=== PATIENT | female | born 1950 | race Caucasian/White ===

== ENCOUNTER 2021-09-30 12:52 | Emergency (ER) | payer MEDICARE, SELFPAY ==
--- NOTE | ~2021-09-30 | XR_ITS ---
[id number] DATE: 09/30/2021 13:30 INDICATION: Right anterior rib pain since missing 5 steps on 09/23/2021 TECHNIQUE: PA chest. 3 views of the right ribs. COMPARISON: None FINDINGS: Normal heart size. There is aortic arch calcification. No hilar or mediastinal enlargement. The lungs are clear of infiltrate or consolidation. There is mild dextro scoliosis of the thoracic spine. There are minimally displaced linear oblique fractures of the anterior right sixth and seventh ribs. No pulmonary contusion, pleural effusion or pneumothorax is evident. IMPRESSION: Minimally displaced anterior right sixth and seventh recent rib fractures Reviewed, dictated and finalized at [facility]. Reviewed, dictated and finalized at [facility]. LEADER IMPRESSION: Minimally displaced anterior right sixth and seventh recent rib fra ctures
[2021-09-30 13:08] VITALS: BP 137/63; PULSE 66; RESP 20; TEMP 37.1; O2SAT 100
--- NOTE | 2021-09-30 13:32 | ED.FALL ---
HPI - Fall General Chief Complaint: Fall Stated Complaint: Fall Injurty/Right Side Time Seen by Provider: 09/30/21 13:32 Source: patient History of Present Illness HPI Narrative: patient fell down some stairs two weeks ago. Patient presents with continued right rib pain. no shortness of breath and no chest pain. resp even and non labored. Related Data Home Medications Medication Instructions Recorded Confirmed amlodipine 09/30/21 atorvastatin 09/30/21 citalopram 09/30/21 losartan 09/30/21 metformin 09/30/21 metoprolol tartrate 09/30/21 omeprazole 09/30/21 Allergies Allergy/AdvReac Type Severity Reaction Status Date / Time No Known Allergies Allergy Verified 09/30/21 13:55 Review of Systems Review of Systems: CONSTITUTIONAL: Denies fever, chills, or sweats. EYES: Denies visual changes, redness, or discharge. ENT: Denies rhinorrhea, congestion, sore throat, or otalgia. CARDIOVASCULAR: Denies chest pain, palpitations, or edema. RESPIRATORY: Denies cough or dyspnea. GASTROINTESTINAL: Denies abdominal pain, nausea, vomiting, or diarrhea. GENITOURINARY: Denies dysuria or hematuria. SKIN: Denies rash or itching. MUSCULOSKELETAL: Denies back pain, joint pain, or myalgia. NEUROLOGIC: Denies headache, numbness, or weakness. PSYCHIATRIC: Denies anxiety or depression. PMFSH Comments At time of signature, agree with nursing past medical, surgical, social and family history. There is no relevant family history pertinent to the presenting complaint Exam Narrative: GENERAL: Well-appearing, well-nourished, and in no acute distress. HEAD: Normocephalic, atraumatic. EYES: PERRLA and EOMI. ENT: Nares clear, no rhinorrhea or epistaxis. Mucous membranes moist. NECK: Supple. CHEST: Clear to auscultation. No respiratory distress. HEART: Regular rate and rhythm. No murmur heard. Normal peripheral pulses. ABDOMEN: Soft, nontender, nondistended, normal active bowel sounds. EXTREMITIES: Normal range of motion. No edema. SKIN: Warm, dry, no rash. NEURO: No focal deficits. Alert and oriented x3. [place] Coma Scale Eye Opening: Spontaneous 4 Alis Coma Scale Motor: Obeys Commands 6 [place] Coma Scale Verbal: Oriented 5 [place] Coma Scale Total 15 Course Course Level of Care: [facility] Visit Vital Signs Vital signs: Vital Signs Temperature 37.1 C 09/30/21 13:08 Pulse Rate 66 09/30/21 13:08 Respiratory Rate 20 09/30/21 13:08 Blood Pressure 137/63 09/30/21 13:08 Pulse Oximetry 100 09/30/21 13:08 Temperature 37.1 C 09/30/21 13:08 Pulse Rate 66 09/30/21 13:08 Respiratory Rate 20 09/30/21 13:08 Blood Pressure 137/63 09/30/21 13:08 Pulse Oximetry 100 09/30/21 13:08 Addressed elevated BP today. Today's blood pressure higher than recommended range. Discussed importance of follow -up with PCP and possible [place] [facility] effects/cardiovascular events related to HTN. Currently patient denies headache, dizziness, vision changes, CP or shortness of breath. Critical dx considered and discussed with pt. Educated patient on red flag s/s and to go to ED if s/s occur. Discussed with pt when to return to [facility] or primary care provider. Pt gave verbal undertstanding, all questions were answered, and pt was agreeable to plan DISCUSSED WITH PATIENT, X-RAY FINDINGS AND THAT X-RAYS WERE NEGATIVE FOR FRACTURE OR DISLOCATIONS. X-RAYS CANNOT RULE OUT TENDON, LIGAMENT, OR SOFT TISSUE STRUCTURE INJURIES AND IF SYMPTOMS PERSIST OR WORSEN, FURTHER EVALUATION MAY BE WARRANTED FOR POTENTIAL IMAGING. ADVISED REST, ICE, COMPRESSION, AND ELEVATION. IF PRESCRIBED ANY MEDICATIONS, TAKE DIRECTED. IF PRESCRIBED MUSCLE RELAXERS, DO NOT DRINK ALCOHOL, DRIVE, OR OPERATE ANY HEAVY MACHINERY WHILE TAKING. INSTRUCTED ON WHEN TO F/U WITH PCP AND CRITICAL RED FLAGS S/S DISCUSSED TO WHEN TO RETURN TO THE [facility] OR GO TO THE EMERGENCY DEPARTMENT. PATIENT/FAMILY UNDERSTAND IMPORTANCE OF CLOSE OBSERVATION AND RETU
== END 2021-09-30 14:10 | disposition home or self-care (01) ==
PROVIDERS: Emergency Provider Nurse Practitioner Family; PCP Family Medicine
DX: S22.31XA Fracture of one rib, right side, initial encounter for closed fracture (principal); W10.9XXA Fall (on) (from) unspecified stairs and steps, initial encounter; E78.00 Pure hypercholesterolemia, unspecified; I10 Essential (primary) hypertension; E11.9 Type 2 diabetes mellitus without complications
CPT/HCPCS: 71101; 99213; G0463

== ENCOUNTER 2025-06-21 12:47 | Emergency (ER) | payer MEDICARE, SELFPAY ==
--- OUTSIDE RECORDS SUMMARY | 2025-04-25 05:15 | XMS_ITS | Continuity of Care Document ---
Author Organization [facility] Address [address] Seth [address] [place] [id number] Phone Care Team Providers Care Field Technical Support Consultant Name Role Phone Destiny RAINEMargaret Unavailable Unavailable Allergies, Adverse Reactions, Alerts Substance Reaction Status Criticality No Known Allergies Active No Inform ation Medications Medication Instructions Dosage Effective Dates (start - stop) Status Comments Mounjaro 5 mg/0.5 mL subcutaneous pen injector inject (5MG) by subcutaneous route every week 5 MG - Active omeprazole 20 mg delayed release,disintegrating tablet once daily - Active melatonin 3 mg tablet take 1 tablet by oral route every evening 1 tablet - Active CoQ-10 100 mg capsule take 1 capsule by oral route every day 1 capsule - Active hydrochlorothiazide 25 mg tablet take 1 tablet by oral route every day 25 MG - Active losartan 100 mg tablet take 1 tablet by oral route every day 100 MG - Active atorvastatin 10 mg tablet take 1 tablet by oral route every day 10 MG - Active metformin 500 mg tablet take 1 tablet by oral route 2 times every day with morning and evening meals 500 MG - Active citalopram 20 mg tablet take 1 tablet by oral route every day 20 MG - Active metoprolol succinate ER 50 mg tablet,extended release 24 hr take 1 tablet by oral route every day 50 MG - Active Ozempic 0.25 mg or 0.5 mg (2 mg/3 mL) subcutaneous pen injector inject (0.5MG) by subcutaneous route every week on the same day of each week 0.5 MG - No Longer Active Procedures Procedure Date No Charge Optomap Fundus Photos 025 No Charge Refraction Office/outpatient Visit, Est Office/outpatient Visit, Est No Charge Refraction Office/outpatient Visit, Est No Charge Refraction Post-op Follow-up Visit Post-op Follow-up Visit Remove Cataract, Post Op Care [facility]ic LensAR Remove Cataract, Insert Lens,Comanaged O ct IOLMaster-Professional No Charge Refraction Post-op Follow-up Visit Remove Cataract, Post Op Care [facility] LensAR Remove Cataract, Insert Lens,Comanaged S ep IOLMaster-Professional No Charge Orbscan No Charge IOL Master No Charge Refraction No Charge GDX Retina No Charge Optomap Fundus Photos 022 IOLMaster-Technical No Charge Orbscan Office/outpatient Visit, New Office/outpatient Visit, Est Office/outpatient Visit, New Advance Directives Directive Yes / No Effective Date File Name Other Directive No N/A N/A WARNING:The information contained in this section is historical and is provided for information only and does not constitute a legal document or any assurance that the information is still accurate. Please verify the information with the kurtz of the legal document before using it for clinical purposes. Encounters Encounter Description Practice Location Reason(s) For Visit Diagnoses Date Provider Providers Copied on Encounter Office/outpa tient Visit, Est [facility], [address], [place], [place], [id number], [place] tel:[phone] [place] Dilated exam (chief complaint) Type 2 diabetes mellitus without complication sPseudophaki a of both eyes Sep-0 202 5 Destiny OD Margaret. [address] [place] [address] [address], [address], [place], [place], [address], [place]. tel:[phone] Referring Provider: Bibi Hsieh OD, [address] [place], [address]. tel:[phone] Office/outpa tient Visit, [facility], [address] [place] [address] [address], [place], [place], [address], [place] tel:[phone] [place] Dry Eye Evaluation (chief complaint) Dry eye syndrome of bilateral lacrimal glands 4 Destiny OD Margaret. [address] [place] [address] [address], [address], [place], [place], [id number], [place]. tel:[phone] Referring Provider: Bibi Hsieh OD, [address] [place], [address]. tel:[phone] Office/outpa tient Visit, [facility], [address] [place] [address] [address], [place], [place], [address], [place] tel:[phone] [place] Complete Exam (chief complaint) Type 2 diabetes mellitus without complication sPseudophaki a of both eyesDry eye syndrome of bilateral lacrimal glands 4 Destiny OD Margaret. [address] [place], [place] [address]i, [address], [place], [place], [address], [place]. tel:[phone] Referring Provider: Bibi Hsieh OD, [address] [place], [address]. tel:[phone] [facility], [address] [place] [address] [address], [place], [place], [id number], [place] tel:[phone] [place] 1 month s/p PANOPTIX IOL w/LensAR (chief complaint) Post op visit 2 Dane OD Rebecca. [address] [place] [address] Drive, [address], [place], [place], [address], [place]. [phone] Referring Provider: Bibi Hsieh OD, [address], [place], [address]. tel:[phone] [facility], [address], [place], [place], [address], [place] tel:[phone] [place] post op (chief complaint) Post op visit Oct-2 6202 2 Dane OD Rebecca. [address] [place], [place] [address], [address], [place], [place], [address], [place]. tel:[phone] Referring Provider: Bibi Hsieh OD, [address], [place], [address]. tel:[phone] [facility], [address] [facility] [place] [address], [place], [place], [id number], [place] tel:[phone] [place] post op (chief complaint) Post op visit Oct-2 0202 2 Dane OD Rebecca. [address] [place] [address] [address], [address], [place], [place], [address], [place]. tel:[phone] Referring Provider: Bibi Hsieh OD, [address], [place], [address]. tel:[phone] [facility], [address] [place] [address] [address], [place], [place], [address], [place] tel:[phone] [facility] No Information Oct- 2 Blu Myers. [address], [address], [place], [place], [address], [place]. tel:[phone] Referring Provider: Bibi Hsieh OD, [address], [place], [address]. tel:[phone] [facility], [address] [place] [address] [address], [place], [place], [address], [place] tel:[phone] [place] No Information May- 2 Blu Myers. [address] [facility], [address], [place], [place], [address], [place]. tel:[phone] Referring Provider: Bibi Hsieh OD, [address] [facility], [place], [address]. tel:[phone] [facility], [address] [place] [address] [address], [place], [place], [address], [place] tel:[phone] [place] 2 wk PanOptix w/LRI CE PO (05/14/22) (chief complaint) Post op visit Oct-0 2 Dane OD Rebecca. [address] [place] [address], [address], [place], [place], [address], [place]. tel:[phone] Referring Provider: Bibi Hsieh OD, [address] [facility], [place], [address]. tel:[phone] [facility], [address], [place], [place], [address], [place] tel:[phone] [place] Post-Op (chief complaint) Post op visit Apr-2 2 Sales OD [facility]. [address] [place] [address] [place], [address], [place]. tel:[phone] Referring Provider: Bibi Hsieh OD, [address] [facility], [place], [address]. tel:[phone] [facility], [address] [place] [address] [address], [place], [place], [address], [place] tel:[phone] [facility] No Information Apr- 2 Blu Myers. [address] [facility], [address], [place], [place], [address], [place]. tel:[phone] Referring Provider: Bibi Hsieh OD, [address] [facility], [place], [address]. tel:[phone] [facility], [address] [place] [address] [address], [place], [place], [address], [place] tel: [place] No Information Apr- 2 Blu Myers. [address], [address], [place], [place], [address], [place]. tel: Referring Provider: Bibi Hsieh OD, [address] [facility], [place], [address]. tel:[phone] [facility], [address] [place] [address] [address], [place], [place], [address], [place] tel: [place] repeat measurements (chief complaint) Combined forms of age-related cataract, bilateral 2 Blu Myers. [address], [address], [place], [place], [address], [place]. tel: Referring Provider: Bibi Hsieh OD, [address] [facility], [place], [address]. [phone] [facility]pa [facility]ient [facility], [address] [place] [address] [address], [place], [place], [address], [place] tel: [place] Cataract evaluation (chief complaint) Combined forms of age-related cataract, bilateralTyp e 2 diabetes mellitus without complication s 2 Blu Myers. [address], [address], [place], [place], [address], [place]. tel:[phone] Referring Provider: Bibi Hsieh OD, [address] [facility], [place], [address]. tel:[phone] [facility], [address] [place] [address] [address], [place], [place], [address], tel:[phone] SEC William [place] No Information 2 Blu Myers. [address] [facility], [address], [place], [place], [address], . tel:[phone] Office/outpa tient Visit, [facility], [address] [place] [address] [address], [place], [place], [address], tel:[phone] [place] floaters (chief complaint) Posterior vitreous detachment 5 Rahul Duque. [address] [facility], [facility] [address], [place], [facility], . tel:[phone] Referring Provider: Edson Kasper, [address] [place] [address], [facility]. tel:[phone] Office/outpa tient Visit, [facility], [address] [place] [address] [address], [place], [place], [address], tel:[phone] SEC [place] GARCIA Professiona l black spot (chief complaint)fl oaters (chief complaint) Posterior vitreous detachment 5 Rahul Duque. [address] [facility], [address], [place], [facility], . tel:[phone] Referring Provider: Edson Kasper, [address] [place] [address], [facility]. tel:[phone] Family History Family Member Type Diagnosis Age At Onset Mother Problem (finding) diabetes melli tus in first degree relative Payers Payer name Insurance type Covered libertarian ID Authoriza tion(s) Medicare [facility] [id number] [employer] Mdcr Supp CI [id number] Social History Type Description Quantity Date Captured Comments Alcohol Use Details Caffeine Use Details Tobacco Use Status Ex-cigarette smoker 025 Smoking Status Former smoker Smoking Tobacco Use Details Cigarette: Age Started: 18, Age Stopped: 52, Years Used 34 Cigarette: 1 Packs per day, Pack Year: 34 Sex Female Chief Complaint And Reason For Visit From encounter dated '04/25/2025 10:15'. Dilated exam (chief complaint). Description: The 74 year old patient presents for evaluation of Dilated exam in the right eye and left eye. Pt is NIDDM II followed by PCP. Pt's last HA1C was 6.1. Pt states her vision is good in both eyes the past year. Pt states she does occasionally has floaters but none recent. Pt states no ocular discomfort. Reason For Referral Reason For Referral No Information Plan Of Treatment Date Type Action Status Goal Tobacco cessation counseling completed Goal Tobacco cessation counseling completed Goal Tobacco cessation counseling completed Goal Tobacco cessation counseling completed Goal Tobacco cessation counseling completed Goal Tobacco cessation counseling completed Appointment Yamile Guerrero BOOKED Patient Education Cataract Surgery: Befor e Your Surgery completed History Of Present Illness Encounter Date Complaint History Of Prese nt Illness Dilated exam The 74 year old patient presents for evaluation of Dilated exam in the right eye and left eye. Pt is NIDDM II followed by PCP. Pt's last HA1C was 6.1. Pt states her vision is good in both eyes the past year. Pt states she does occasionally has floaters but none recent. Pt states no ocular discomfort. Dry Eye Evaluation The 73 year o ld patient presents for evaluation of Dry Eye Evaluation in the right eye and left eye. Pt was not able to get Miebo due to cost and it not being covered. Pt has been using iVizia. Pt states her blurriness has gone away for the most part since her last visit. SPEED: 10/21TBUT: 4.40/ 2.48 Complete Exam The 73 year old patient presents for evaluation of Complete DM Exam in the right eye and left eye. Pt states that about since months ago they noticed that OU seemed to start becoming blurry and over the past 6 months pt states it seems to have been slowly getting worse. Pts PCP Follows them for Diabetes Type II and last A1C was 6.6 and last Blood sugar reading was 135. 1 month s/p PANOPTIX IOL w/LensA R The 71 year old patient presents for evaluation of 1 month s/p PANOPTIX IOL w/LensAR in the right eye. (06/11/22). Patient feels VA is pretty good. Patient to see referring OD for glasses if needed. post op The 71 year old patient presents for a 1 week post op CE with Panoptix IOL OD. Patient is using Pred, Vigamox and Ketorolac qid OD. Patient states OD is doing good. post op The 71 year old patient presents for a 1 day post op CE with Panoptix IOL OD. Patient is using Pred, Vigamox and Ketorolac qid OD. Patient c/o FBS OD better today then yesterday. Patient states vision seems really good. 2 wk PanOptix w/LRI CE PO () The 71 year old patient presents for evaluation of 2 wk PanOptix w/LRI CE PO (05/14/22) in the left eye. Pt reports she is using Pred BID OS and Ketorolac BID OS. Pt reports OS is doing good and she is seeing a lot better since CE. Pt reports she would like to proceed with CE, OD, because she has trouble reading street signs while driving, trouble reading small print up close and is bothered by glare from headlights while driving at night, OD, x several mos. Post-Op The 71 year old patient presents for a 1 day post op CE with Panoptix IOL & LRI OS. Patient is using Pred, Vigamox and Ketorolac qid OS. Patient denies any pain or discomfort. Patient states vision OS seems pretty good. repeat measurements The 71 year old patient presents for repeat IOL and pentacam. Cataract evaluation The 71 year old patient presents for evaluation of Cataract evaluation in the right eye and left eye. Patient states her VA has decreased over the last year and getting worse. Patient states she has difficulty seeing road signs at a distance, trouble reading small print with both eyes, and avoids driving at night due to glare with both eyes. Patient is a Type 2 diab, BS checked this am @ 160, a1c 7.1, and PCP treats her diab. floaters The 64 year old female presents for a 2 week follow up PVD OS. Patient states doesn't notice floater as much. floaters The patient is p resent for a WIE. Patient c/o a floater OS x 1 week. Patient c/o headaches. black spot Functional Status Date Functional Assessmen t No Information Instructions Date Instruction Additional Infor mation Impression/Plan Impression/Plan Impression/Plan Impression/Plan Impression/Plan Impression/Plan Impression/Plan Impression/Plan Impression/Plan Impression/Plan - as needed Related to Poste rior vitreous detachment - Posterior vitreous detachment discussed, there is no evidence of retinal pathology. All signs and risks of retinal detachment and tears were discussed in detail. Patient instructed to call the office immediately if any symptoms noted. Return as needed. Related to Posterior vitreous detachment - Return in 2 weeks for follow up with DFE Related to Posterior vitreous detachment - Posterior vitreous detachment accounts for the patient's complaints. There is no evidence of retinal pathology. All signs and risks of retinal detachment and tears were discussed in detail. Patient instructed to call the office immediately if any symptoms noted. Recommend the patient return to office for follow up. Return in 2 weeks for follow up with DFE. Related to Posterior vitreous detachment Posterior vitreous d etachment - Educational material given Related to Posterior vitreous detachment Assessments Type Assessment Date assessment Type 2 diabetes mellitus without complications assessment Pseudophakia of both eyes Patient Care Teams Name Effective Dates (start - stop) Status Members No Information
--- NOTE | ~2025-06-21 | XR_ITS ---
EXAMINATION: XR foot LT min 3V, 06/21/2025 13:00 CDT HISTORY: INVERSION INJURY, LAT PAIN, GEN SWELLING COMPARISON: No comparisons available. Findings: Nondisplaced fracture proximal fifth metatarsal No significant degenerative changes. Soft tissues unremarkable. Impression: Metatarsal fracture Reviewed, dictated and finalized at location P. Impression: Metatarsal fracture
[2025-06-21 13:00] VITALS: BP 132/62; PULSE 63; RESP 16; TEMP 36.6; O2SAT 100
--- NOTE | 2025-06-21 13:05 | ED_ITS ---
HPI - Extremity Injury (Lower) General Chief Complaint: Extremity Injury, Lower Stated Complaint: L foot pain Time Seen by Provider: 06/21/25 13:10 Source: patient and RN notes reviewed Mode of arrival: ambulatory Limitations: no limitations History of Present Illness HPI Narrative: 74-year-old female presents with concern for left foot pain, swelling, bruising. She reports 9 days ago she stood up and her foot ?gave out? and she twisted it. She has had pain, bruising and has been using an Marek wrap. She is not taking anything for pain. MD complaint: foot injury Related Data Home Medications ?Medication ?Instructions ?Recorded ?Confirmed ?Last Taken ?Type atorvastatin 20 mg tablet mg 06/21/25 Unknown History blood sugar diagnostic (OneTouch 06/21/25 06/21/25 Un known History Ultra Test strips) citalopram 40 mg tablet mg 06/21/25 Unknown History hydrochlorothiazide 25 mg tablet mg 06/21/25 Unknown History losartan 100 mg tablet mg 06/21/25 Unknown History omeprazole 20 mg capsule,delayed mg 06/21/25 Unknown History release tirzepatide 5 mg/0.5 mL mg subcut 06/21/25 Unknown History subcutaneous pen injector (Mounjaro) Allergies Allergy/AdvReac Type Severity Reaction Status Date / Time No Known Allergies Allergy Verified 06/21/25 13:00 Review of Systems Review of Systems: CONSTITUTIONAL: Denies malaise, chills, sweats, or fever. SKIN: Denies rash or itching, open skin, laceration, abrasion, redness, warmth MUSCULOSKELETAL: Reports left foot pain swelling and bruising NEUROLOGIC: Denies numbness, weakness All systems reviewed & are unremarkable except as noted in HPI and below PMFSH Comments At time of signature, agree with nursing past medical, surgical, social and family history. There is no relevant family history pertinent to the presenting complaint Exam Narrative: GENERAL: Well-appearing, well-nourished, and in no acute distress. HEAD: Normocephalic, atraumatic. EYES: PERRLA, conjunctivae clear NECK: Supple. CHEST: Speaks in full sentences. No respiratory distress. HEART: Regular rate and rhythm. Normal and equal peripheral pulses. EXTREMITIES: Left foot and digits have grossly grossly normal strength and sensation, grossly normal range of motion. Mild general foot edema with distal foot ecchymosis. Normal sensation with sensitivity to light touch and pain. No point tenderness. No open wounds, no skin tenting, no devitalized tissue or atrophy, no trophic changes, no obvious deformity, alignment normal, nearby joints and structures intact. Distal pulses palpable and equal bilaterally, skin warm, dry, pink. Capillary refill less than 3 seconds. SKIN: Warm, dry, no rash. NEURO: Alert and oriented x3. PSYCH: Normal mood and affect Course Course Emergency Course: Patient is aware of diagnosis, understands and agrees to treatment plan. Anticipatory guidance given. Patient agrees to follow-up as directed and is aware of reasons to seek care at the emergency department. Portions of this record may have been created with voice recognition software Level of Care: Express Care Visit Vital Signs Vital signs: Vital Signs Temperature 98 F 06/21/25 13:00 Pulse Rate 63 06/21/25 13:00 Respiratory Rate 16 06/21/25 13:00 Blood Pressure 132/62 06/21/25 13:00 Pulse Oximetry 100 06/21/25 13:00 Oxygen Delivery Room Air 06/21/25 13:00 Temperature 98 F 06/21/25 13:00 Pulse Rate 63 06/21/25 13:00 Respiratory Rate 16 06/21/25 13:00 Blood Pressure 132/62 06/21/25 13:00 Pulse Oximetry 100 06/21/25 13:00 Oxygen Delivery Room Air 06/21/25 13:00 Reviewed. MDM - Extremity Injury (Lower) MDM Narrative Medical decision making narrative: The patient was evaluated by myself in the [facility] care. History is obtained from patient who is an independent historian and physical exam was performed.? Available medical records were reviewed at this time. ? Exam findings show no acute concerns or changes; patient is non-toxic appearing and is in no distress. Patient is appropriate for outpatient treatment and follow-up. ? I have evaluated and discussed social determinants of health with the patient that could potentially impact subsequent diagnosis and treatment plans. ? Patients injury and pain is consistent with musculoskeletal etiology. No signs of neurological or vascular compromise on exam. Compartments and tissues are soft without signs of compartment syndrome. Pain is felt appropriate for further evaluation on an outpatient basis. Critical Care Time Critical Care Time Critical Care Time: No Discharge Plan Discharge Clinical Impression: Metatarsal fracture Patient Disposition: Home Condition: Stable Instructions: Foot Fracture in Adults (ED) Additional Instructions: Please rest, ice and elevate the affected extremity. Please take Motrin 600mg every 8 hours, as needed, for pain (take with food). Follow up with Orthopedic Surgery in 1-2 days for further evaluation - please call for an appointment. Keep wrap and hard-soled shoe on when walking, use walker to avoid bearing weight on the left foot. Please go to ER immediately for increased pain, tingling/numbness, swelling, redness, and fever Patient Language: Albanian Prescriptions: No Action atorvastatin 20 mg tablet citalopram 40 mg tablet (DME) OneTouch Ultra Test Strip MISCELLANEOUS omeprazole 20 mg capsule,delayed release(DR/EC) hydrochlorothiazide 25 mg tablet losartan 100 mg tablet Mounjaro 5 mg/0.5 mL pen injector SUBCUT Follow-up/Referrals: Harms,Robert Francis M.D. [Primary Care Provider] Alex Larsen MD [Physician, Orthopedics] Time of Disposition: 13:23
--- OUTSIDE RECORDS SUMMARY | 2025-06-21 14:02 | XMS_ITS | Clinical Summary ---
Author Organization [facility] Address [address] [place] [address] Care Team Providers Care Supplier Development Manager Name Role Phone Robert Meza MD Primary Care Provider [phone] Allergies No known active allergies Medications coenzyme Q10 100 mg capsule Take 1 capsule (100 mg total) by mouth daily Active [id number] 600 mg calcium- 800 unit-50 mg tablet Take by mouth Active melatonin tablet Take 1 tablet (3 mg total) by mouth nightly Active perfluorohexylo ctane, PF, (Miebo, PF,) 100 % drops Administer 1 drop into affected eye(s) every 6 hours 02/05/20 24 Active busPIRone (BUSPAR) 5 mg tabletIndicatio ns:Generalized Anxiety Disorder Take 1 tablet (5 mg total) by mouth 3 (three) times a day 90 tablet 11 05/23/20 24 Active Additional Information Patient taking differently:5 mg oralNightly, Indications: Generalized Anxiety Disorder, Reported on 05/04/2025 ciprofloxacin (CILOXAN) 0.3 % ophthalmic solution 7 drops into EACH EAR, NOT EYE, twice daily for 10 days 10 mL 1 07/07/20 24 Active Additional Information Patient not taking.Reported on 05/04/2025 famotidine (PEPCID) 20 mg tabletIndicatio ns:Gastroesopha geal reflux disease without esophagitis TAKE 1 TABLET(20 MG) BY MOUTH TWICE DAILY NEEDED FOR HEARTBURN 200 tablet 11/01/19 25 Active metoprolol tartrate (LOPRESSOR) 25 mg immediate release tabletIndicatio ns:Hypertension associated with diabetes (HCC) TAKE 1 TABLET(25 MG) BY MOUTH DAILY 90 tablet 1 01/07/20 25 Active blood glucose diagnostic (Bill Me Lateruch Ultra Test) stripIndication s:Type 2 diabetes mellitus with hyperglycemia, without long-term current use of insulin ([facility]) TEST BLOOD GLUCOSE ONCE DAILY DIRECTED 100 strip 02/26/20 25 Active Mounjaro 5 mg/0.5 mL pen injector injectionIndica tions:Type 2 diabetes mellitus with hyperglycemia, without long-term current use of insulin ([facility]) ADMINISTER 5 MG UNDER THE SKIN 1 TIME A WEEK 2 mL 3 03/07/20 25 Active citalopram (CeleXA) 40 mg tabletIndicatio ns:Mild episode of recurrent major depressive disorder TAKE 1 TABLET(40 MG) BY MOUTH DAILY 100 tablet 04/15/20 25 Active atorvastatin (LIPITOR) 20 mg tabletIndicatio ns:Dyslipidemia associated with type 2 diabetes mellitus (HCC) TAKE 1 TABLET(20 MG) BY MOUTH DAILY 100 tablet 1 05/01/20 25 Active hydroCHLOROthia zide (HYDRODIURIL) 25 mg tabletIndicatio ns:Essential hypertension TAKE 1 TABLET(25 MG) BY MOUTH DAILY 100 tablet 05/01/20 25 Active losartan (COZAAR) 100 mg tabletIndicatio ns:Hypertension associated with diabetes (HCC) TAKE 1 TABLET(100 MG) BY MOUTH DAILY 100 tablet 05/01/20 25 Active Accu-Chek Fastclix Lancet Drum miscIndications :Type 2 diabetes mellitus with hyperglycemia, without long-term current use of insulin ([facility]) USE ONCE DAILY 102 each 3 05/18/20 25 Active omeprazole (PriLOSEC) 20 mg capsuleIndicati ons:Gastroesoph ageal reflux disease without esophagitis TAKE 1 CAPSULE(20 MG) BY MOUTH DAILY 100 capsule 1 05/23/20 25 Active omeprazole (PriLOSEC) 20 mg capsuleIndicati ons:Gastroesoph ageal reflux disease without esophagitis TAKE 1 CAPSULE(20 MG) BY MOUTH DAILY 100 capsule 1 08/22/20 24 025 Discontinued Active Problems Problem Noted Date Diagnosed Date BMI 22.0-22.9, adult 05/04/2025 Assessment & Plan (05/04/2025 1:06 PM CDT): Intentional weight loss of 20-25 lb, positively impacting blood pressure and diabetes management. Chronic otitis media of both ears with effusion 07/04/2024 Assessment & Plan (07/04/2024 2:05 PM PUTTY REMOVER): Hearing test Bilateral myringotomy with T-tube placement, and removal of left retained ear tube Risks and complications discussed including anesthesia, bleeding, infection, hearing loss, ear tubes may fall out early, fall inwards, stay in longer than a few years, get clogged, fall out and leave a hole in the ear drum that would need to be patched, drain clear fluid. Chronic otitis media with effusion, bilateral Anxiety and depression 05/23/2024 Assessment & Plan (10/27/2024 3:21 PM PUTTY REMOVER): Moods are stable overall, feels she is doing well with citalopram 40 mg daily. Patient reports she has been taking buspirone once daily, encouraged her to take twice daily due to short half-life. We will continue monitor. Assessment & Plan (05/23/2024 5:45 PM CDT): Reports increase in anxiety and depression over the past few months. Notes she seems to have more social anxiety, avoids social settings and has fewer that people think she is stupid. She does enjoy spending time with her family and many grandchildren. Discussed benefits of counseling, patient would like to think about this. Continue citalopram 40 mg daily and will add buspirone. Patient is aware that she should follow-up immediately if experiencing any new or worsening symptoms, will otherwise see her again in 3 months. Encounter for annual wellness exam in Medicare p atient 10/26/2023 Assessment & Plan (10/27/2024 3:21 PM PUTTY REMOVER): Preventative exam; reviewed screenings and vaccinations. No falls or safety concerns. Bone density scan ordered today. Scheduled for mammogram next month. Assessment & Plan (10/26/2023 12:51 PM PUTTY REMOVER): Preventive exam; reviewed recommended preventive screenings and vaccinations. -Up-to-date on vaccines including shingles and RSV. -scheduled for mammogram later this week Sinus headache 10/26/2023 Assessment & Plan (10/26/2023 12:49 PM PUTTY REMOVER): Reports congestion and headache in the morning for the past few weeks. Improves by mid morning. No fevers or nasal drainage. Will continue to monitor. If symptoms worsen can prescribe antibiotic if needed. Patient will notify office with any changes. Dysfunction of left eustachian tube 07/03/2023 Assessment & Plan (04/12/2025 3:02 PM CDT): Avoid ear cleaning techniques Avoid water to ears Follow up in 9 months for ear tube check Assessment & Plan (07/14/2024 2:49 PM PUTTY REMOVER): Avoid ear cleaning techniques Avoid water to ears Follow up in 9 months for ear tube check, no ear drainage Assessment & Plan (07/03/2023 12:01 PM PUTTY REMOVER): Avoid ear cleaning techniques Avoid water to Left ear Follow up on left ear tube in 9-12 months Continue Hearing aids Chronic maxillary sinusitis 05/04/2023 Assessment & Plan (05/04/2023 1:23 PM CDT): Ofloxacin 7 drops into EACH EAR, NOT EYE, twice daily for 10 days Ciprofloxacin 500 mg twice daily for 14 days, call for refill Follow up in 4 weeks Work with [facility] regarding hearing aids Otorrhea of both ears 05/04/2023 Assessment & Plan (05/04/2023 1:23 PM CDT): Ofloxacin 7 drops into EACH EAR, NOT EYE, twice daily for 10 days Ciprofloxacin 500 mg twice daily for 14 days Follow up in 4 weeks Work with [facility] regarding hearing aids JENN (obstructive sleep apnea) 11/24/2022 Assessment & Plan (05/23/2024 5:43 PM CDT): Following with sleep med, Dr. Nieto. Nightly CPAP use. Assessment & Plan (12/30/2022 11:42 AM CDT): Started using cpap 3 weeks ago. Gastroesophageal reflux disease without esophagi tis 10/02/2022 Assessment & Plan (10/02/2022 8:38 PM PUTTY REMOVER): Discussed benefits of weight loss. Patient to continue omeprazole 20 mg daily and will try adding famotidine as needed. Avoid fried, fatty, greasy, spicy trigger foods. Avoid lying down within 2 hours of eating. Need for influenza vaccination 05/06/2022 Assessment & Plan (05/10/2022 12:01 PM CDT): Flu vaccine given today. Discussed possible tenderness/redness at injection site. Encounter for screening mamm ogram for malignant neoplasm of breast 05/06/2022 Assessment & Plan (05/10/2022 12:02 PM CDT): Last mamm 01/15/21. Mammogram order given; will call with results when received. Encouraged to perform monthly SBE. BMI 26.0-26.9,adult 05/06/2022 Assessment & Plan (10/27/2024 3:22 PM PUTTY REMOVER): Stable; healthy diet and regular exercise Assessment & Plan (10/02/2022 8:39 PM PUTTY REMOVER): Discussed healthy diet and importance of regular physical activity. Assessment & Plan (05/10/2022 12:03 PM CDT): Weight down 9# since 10/2021 appt. Congratulated on wt loss. Reviewed need to lose weight, reviewed health benefits. Reviewed recommendations for daily intake & activity 20-30 minutes/day. Discussed healthy diet and importance of regular physical activity. Encounter for Medicare annual wellness exam 04/2021 Assessment & Plan (05/10/2022 12:01 PM CDT): 1. Eat a healthy diet: focus on lean meats and proteins, more fruits, vegetables and whole grains and low in sugars and fats. Limit red meat and avoid processed meat. 2. Maintain a healthy weight; avoid being overweight. Aim for a normal body mass index (BMI) of 18.5-24.9. Help learning to eat healthier, we can set up appointment with nail galvanizer/military professional. 3. Have an active lifestyle, strive for 30 minutes of moderate exercise 5 times a week and strength or resistance training at least twice a week. 4. Use broad-spectrum (UVA+UVB) sunscreen with SPF 30 or greater, is water resistant, limit time spent in the sun (10 am-4pm), wear hat, wear UV protective clothing, wear sunglasses. Never use a tanning bed. Skin that was irradiated may be more sensitive over your lifetime. 5. Does not smoke or chew tobacco. 6. Limit alcohol intake, 1 drink per day for a woman. Copy of results from 05/02/22 given to Yamile Guerrero. Reviewed results at time of appointment. Assessment & Plan (05/02/2021 10:23 AM CDT): 1. Eat a healthy diet: focus on lean meats and proteins, more fruits, vegetables and whole grains and low in sugars and fats. Limit red meat and avoid processed meat. 2. Maintain a healthy weight; avoid being overweight. Aim for a normal body mass index (BMI) of 18.5-24.9. Help learning to eat healthier, we can set up appointment with nail galvanizer/military professional. 3. Have an active lifestyle, strive for 30 minutes of moderate exercise 5 times a week and strength or resistance training at least twice a week. 4. Use broad-spectrum (UVA+UVB) sunscreen with SPF 30 or greater, is water resistant, limit time spent in the sun (10 am-4pm), wear hat, wear UV protective clothing, wear sunglasses. Never use a tanning bed. Skin that was irradiated may be more sensitive over your lifetime. 5. Does not smoke or chew tobacco. 6. Limit alcohol intake, 1 drink per day for a woman. Dyslipidemia associated with type 2 diabetes rojas litus 04/09/2020 Assessment & Plan (05/04/2025 1:06 PM CDT): Cholesterol is well controlled, continue atorvastatin 20 mg daily. Assessment & Plan (10/27/2024 3:21 PM PUTTY REMOVER): Well controlled; taking atorvastatin 20 mg daily as prescribed. No changes made today. Assessment & Plan (05/23/2024 5:43 PM CDT): Stable; doing well with atorvastatin 20 mg daily. Assessment & Plan (10/26/2023 11:00 AM PUTTY REMOVER): Cholesterol near goal. Will continue to work on diet and weight loss. Continue atorvastatin 20 mg daily. Assessment & Plan (05/21/2023 11:15 AM CDT): Reviewed cholesterol with patient, LDL not at goal less than 70. Patient is compliant with atorvastatin 20 mg daily, will increase atorvastatin to 40 mg 2 days per week and 20 mg the rest. Repeat labs in 3 months Assessment & Plan (12/30/2022 11:57 AM CDT): The 10-year ASCVD risk score (Shantanu BLEDSOE, et al., 2019) is: 20.8% Values used to calculate the score: Age: 72 years Sex: Female Is Non- : No Diabetic: Yes Tobacco smoker: No Systolic Blood Pressure: 120 mmHg Is BP treated: Yes HDL Cholesterol: 44 mg/dL Total Cholesterol: 184 mg/dL Will increase atorvastatin to 20 mg daily. Assessment & Plan (05/10/2022 12:00 PM CDT): Copy of results from 05/02/22 given to Yamile Guerrero. Reviewed results at time of appointment. 04/26/21 A1C=7.5% UL=667 HDL=39 DJ=680 BCI=089 TC/HDL=4.0 10/29/21 A1C=7.7% ZF=211 HDL=37 TG=92 UHE=474 TC/HDL=4 XRQSAA=374 05/02/22 A1C=7.7% TF=411 HDL=33 OQ=365 LDL=91 TC/HDL=5 RRBLFW=077 Improved TC/LDL. Atorvastatin 10mg daily. Denies myalgias. TC/LDL lowering. Patient should focus on limiting bad fats in the diet and using exercise as a way to improve the lipid status. Secondary prevention. Reviewed medications. Denies any statin Ses. Reviewed diet/exercise recommendations. Reviewed red flags The 10-year ASCVD risk score (Shantanu DK, et al., 2019) is: 19.6% Values used to calculate the score: Age: 71 years Sex: Female Is Non- : No Diabetic: Yes Tobacco smoker: No Systolic Blood Pressure: 122 mmHg Is BP treated: Yes HDL Cholesterol: 33 mg/dL Total Cholesterol: 153 mg/dL Down from 22.1% 10/2021 appt Assessment & Plan (11/03/2021 4:12 PM CDT): Copy of results from 10/29/21 discussed with Yamile Geurrero at time of appointment. 08/06/20 a1c=7.3 HG=320 PJT=194 LV=748 LNL=802 TC/HDL=4.0 04/26/21 A1C=7.5% VP=151 HDL=39 ZJ=007 OQU=188 TC/HDL=4.0 10/29/21 A1C=7.7% DS=928 HDL=37 TG=92 LVP=812 TC/HDL=4 SPSMLV=469 Atorvastatin 10mg daily. Denies myalgias. TC/LDL lowering. Patient should focus on limiting bad fats in the diet and using exercise as a way to improve the lipid status. Secondary prevention. Reviewed medications. Denies any statin Ses. Reviewed diet/exercise recommendations. Reviewed red flags. The 10-year ASCVD risk score (Lola CHEUNG Jr., et al., 2013) is: 22.1% Values used to calculate the score: Age: 71 years Sex: Female Is Non- : No Diabetic: Yes Tobacco smoker: No Systolic Blood Pressure: 132 mmHg Is BP treated: Yes HDL Cholesterol: 37 mg/dL Total Cholesterol: 155 mg/dL Assessment & Plan (05/01/2021 9:29 PM CDT): Copy of results from 04/26/21 given to Yamile Guerrero. Reviewed results at time of appointment. 01/30/20 MK=707 HDL=46 TG=91 TLT=967 TC/HDL=3.6 08/06/20 a1c=7.3 EU=189 BQ=100 YQ=400 IIV=382 TC/HDL=4.0 04/26/21 A1C=7.5% SZ=206 HDL=39 DP=415 WTQ=854 TC/HDL=4.0 Atorvastatin 10mg. Denies myalgias. Patient should focus on limiting bad fats in the diet and using exercise as a way to improve the lipid status. Secondary prevention. Reviewed medications. Denies any statin Ses. Reviewed diet/exercise recommendations. Reviewed red flags. Assessment & Plan (08/07/2020 11:06 AM PUTTY REMOVER): 07/25/19 zq=187 HDL=45 HV=699 JUB=038 TC/HDL=4.0 01/30/20 OY=603 HDL=46 TG=91 FDJ=431 TC/HDL=3.6 08/06/20 a1c=7.3 TB=478 OO=664 XX=624 OAM=016 TC/HDL=4.0 Copy of results given to Yamile Guerrero. Reviewed results at time of appointment. We will check labs and make adjustments to medications as needed. Patient should focus on limiting bad fats in the diet and using exercise as a way to improve the lipid status. Secondary prevention. Reviewed medications. Denies any statin Ses. Reviewed diet/exercise recommendations. Reviewed red flags. Hypertension associated with diabetes 04/09/2020 Assessment & Plan (05/04/2025 1:06 PM CDT): Patient with soft blood pressure due to recent weight loss of 25 lb. She does have occasional associated dizziness. Will adjust medications. Patient to discontinue amlodipine. Continue losartan, HCTZ and metoprolol. Continue monitoring blood pressure at home and notify office if readings are consistently above 130 systolic. Assessment & Plan (10/27/2024 3:20 PM PUTTY REMOVER): Normotensive; continue losartan 100 mg daily, amlodipine 5 mg daily and hydrochlorothiazide 25 mg daily Assessment & Plan (10/26/2023 11:10 AM PUTTY REMOVER): Checking BP at home, average blood pressure readings 120's/130's systolic. Will continue current regimen. Assessment & Plan (05/21/2023 10:39 AM CDT): Blood pressure is well controlled, continue current medication regimen of hydrochlorothiazide 25 mg daily, losartan 100 mg daily, metoprolol 25 mg daily and amlodipine 10 mg daily. Assessment & Plan (12/30/2022 11:45 AM CDT): Blood pressure well controlled. No changes today. Will continue to monitor. Assessment & Plan (10/02/2022 8:39 PM PUTTY REMOVER): Blood pressure well controlled on current medication regimen. Continue to monitor. Patient to continue losartan 100 mg tablet daily and amlodipine 5 mg tablet once daily. Assessment & Plan (05/10/2022 11:56 AM CDT): Copy of results from 05/02/22 discussed with Yamile Guerrero at time of appointment. Amlodipine 5mg daily, HCTA 25mg daily, losartan 100mg daily, metoprolol 25mg bidaily. The blood pressure is under good control. Ideally it should be under 130/80. Continue medications without adjustment. Continue efforts to eat well (4-5 fruits and veggies) daily and exercise for about 30 min nearly every day. Watch salt intake, keeping to less than 2000mg per day. Limit alcohol. Include strategies to cope with stress. Assessment & Plan (11/03/2021 4:13 PM CDT): Copy of results from 10/29/21 discussed with Yamile Guerrero at time of appointment. Amlodipine 5mg daily, HCTA 25mg daily, losartan 100mg daily, metoprolol 25mg bidaily. The blood pressure is under good control. Ideally it should be under 130/80. Continue medications without adjustment. Continue efforts to eat well (4-5 fruits and veggies) daily and exercise for about 30 min nearly every day. Watch salt intake, keeping to less than 2000mg per day. Limit alcohol. Include strategies to cope with stress. Assessment & Plan (05/01/2021 9:32 PM CDT): Copy of results from 04/26/21 given to Yamile Guerrero. Reviewed results at time of appointment. The blood pressure is under good control. Ideally it should be under 130/80. Continue medications without adjustment. Continue efforts to eat well (4-5 fruits and veggies) daily and exercise for about 30 min nearly every day. Watch salt intake, keeping to less than 2000mg per day. Limit alcohol. Include strategies to cope with stress. Assessment & Plan (08/07/2020 11:07 AM PUTTY REMOVER): Copy of results given to Yamile Guerrero. Reviewed results at time of appointment. The blood pressure is under good control. Ideally it should be under 130/80. Continue medications without adjustment. Continue efforts to eat well (4-5 fruits and veggies) daily and exercise for about 30 min nearly every day. Watch salt intake, keeping to less than 2000mg per day. Limit alcohol. Include strategies to cope with stress. History of tympanostomy tube placement 0 Assessment & Plan (05/04/2023 1:22 PM CDT): Left ear tube still present Non-functioning tympanostomy tube 04/05/2020 Disorder of refraction and accommodation 018 Nuclear senile cataract 10/26/2017 Mild episode of recurrent major depressive disor holger 10/09/2017 Assessment & Plan (12/30/2022 1:01 PM CDT): Reports moods are good on current medication regimen, continue citalopram 40 mg daily. Assessment & Plan (05/10/2022 12:03 PM CDT): Citalopram 40mg daily. Reports good control of depression w/current regimen. No changes to be made at this time. Reviewed med Ses & scheduling. Reviewed red flags. Assessment & Plan (11/03/2021 4:21 PM CDT): Citalopram 40mg daily. Reports good control of depression w/current regimen. No changes to be made at this time. Reviewed med Ses & scheduling. Reviewed red flags. Assessment & Plan (05/02/2021 10:09 AM CDT): Increased Citalopram to 40mg daily. Reports good control of depression w/current regimen. No changes to be made at this time. Reviewed med Ses & scheduling. Reviewed red flags. Assessment & Plan (08/07/2020 11:29 AM PUTTY REMOVER): Reports good control of depression w/current regimen. No changes to be made at this time. Reviewed med Ses & scheduling. Reviewed red flags. Assessment & Plan (01/30/2020 12:43 PM CDT): Husbands 1st anniversary next week (02/04/20); feels anger that he is no longer here. Feels that citalopram is very helpful. Reports good control of depression w/current regimen. No changes to be made at this time. Reviewed med Ses & scheduling. Reviewed red flags. Assessment & Plan (09/13/2019 9:11 AM PUTTY REMOVER): PHQ-2 now zero. Much improvement in mood. Reports good control of depression w/current regimen. No changes to be made at this time. Reviewed med Ses & scheduling. Reviewed red flags. To f/u in 3 months. Assessment & Plan (08/01/2019 11:27 AM PUTTY REMOVER): Had been on citalopram prior to 's cancer dx (2017 or 2018) but stopped once he was diagnosed. Discussed PHQ9 results (elevated at 13 today). Will resume citalopram (has at home still) Discussed different types of medications & their Ses/MOA. Citalopram 20 mg daily sent. To take 1/2 tab for 1st 8 days then increase to full tab. To make f/u appt in 5-6 weeks. Aware that it may take up to 4 weeks to notice effects & 6-8 weeks to feel full effects. Reviewed main Ses of GI upset & RAZA Reviewed red flags; aware to call office/911 if thoughts of harming self/others. To stop medications immediately in that instance. Type 2 diabetes mellitus 04/03/2014 Overview (11/27/2016): Diabetes mellitus type 2 Assessment & Plan (05/04/2025 1:06 PM CDT): Improved glycemic control with A1c reduced to 5.3%. Weight loss achieved. Metformin discontinued due to improved control and potential kidney concerns. Kidney function excellent. - Discontinue metformin. Assessment & Plan (10/27/2024 3:20 PM PUTTY REMOVER): Tolerating Mounjaro 2.5 mg weekly injection as well as metformin 1000 mg b.i.d.. A1c has continued to improve. Patient would like to increase Mounjaro for additional benefit of weight loss, increase to 5 mg weekly. Instructed to decrease metformin from 1000 mg b.i.d. to just once daily dosing. Encouraged her to schedule eye exam. Assessment & Plan (05/23/2024 5:43 PM CDT): Metformin 1000 mg b.i.d. Ozempic 0.5 mg weekly. Had previously been experiencing nausea and GI upset for 1-2 days after injection. Has not had any these symptoms in the past 2-3 weeks. We discussed transitioning from Ozempic to Mounjaro to assess better tolerability. If unable to switch will plan to continue to monitor response to Ozempic and change medications if GI upset continues. Overall glucose is well controlled. Blood pressure is well controlled. Assessment & Plan (10/26/2023 10:59 AM PUTTY REMOVER): Last several days fasting morning glucose in 150's. Will increase semaglutide to 0.5 mg weekly. Continue metformin 1000 mg twice daily. Will continue to monitor closely and discontinue glimepiride. Assessment & Plan (05/21/2023 11:15 AM CDT): Lab Results Component Value Date HGBA1C 8.3 (H) 05/18/2023 HGBA1C 7.8 (H) 12/29/2022 HGBA1C 7.7 09/19/2022 Worsening; currently taking glimepiride 4 mg daily, metformin 1000 mg b.i.d. monofilament testing completed headache no loss of protective senses. Will add Ozempic 0.25 mg weekly x4 weeks then increase to 0.5 mg weekly and monitor response. Repeat labs in 3 months. If medication is not covered under patient's current insurance, will plan to start Jardiance 10 mg daily Assessment & Plan (12/30/2022 11:57 AM CDT): Lab Results Component Value Date HGBA1C 7.8 (H) 12/29/2022 HGBA1C 7.7 09/19/2022 HGBA1C 7.6 (H) 05/02/2022 Increase glimepiride to 4 mg daily. Continue metformin. Assessment & Plan (10/02/2022 8:42 PM PUTTY REMOVER): Lab Results Component Value Date HGBA1C 7.7 09/19/2022 HGBA1C 7.6 (H) 05/02/2022 HGBA1C 7.7 (H) 10/29/2021 A1c stable. Patient is interested in starting GLP 1, has reviewed insurance formulary for coverage. If semaglutide approved, will start 0.25 mg injection weekly x4 weeks then increase to 0.5 mg weekly thereafter and discontinue glimepiride. Continue metformin 1000 mg b.i.d.. If not approved continue both metformin and glimepiride. Reviewed diet and exercise recommendations. Patient is current on eye exam. Reviewed signs/symptoms of hypo/hyperglycemia. Recommend follow-up in 3-6 months. Assessment & Plan (05/10/2022 11:59 AM CDT): Copy of results from 05/02/22 discussed with Yamile Guerrero at time of appointment. Lab Results Component Value Date HGBA1C 7.6 (H) 05/02/2022 HGBA1C 7.7 (H) 10/29/2021 HGBA1C 7.5 (H) 04/26/2021 A1c dropped minimally but has moved down instead of up. Again reviewed diet/exercise. Will need to adjust meds if unable to drop w/lifestyle changes. Reviewed dietary/exercise recommendations. Instructed to perform daily foot check. Reviewed medication side effects & scheduling. To check/record FSBS & bring to appointments. To make follow up appointment in 6 months. Reviewed red flags; what would warrant further evaluation. Assessment & Plan (11/03/2021 3:51 PM CDT): Copy of results from 10/29/21 discussed with Yamile Guerrero at time of appointment. Lab Results Component Value Date HGBA1C 7.7 (H) 10/29/2021 HGBA1C 7.5 (H) 04/26/2021 HGBA1C 7.3 (H) 08/06/2020 Reviewed slowly upward trending A1c. Mrs Guerrero reports that she & granddtr have discussed diet They plan to start new, improved intake. Reviewed dietary/exercise recommendations. Instructed to perform daily foot check. Reviewed medication side effects & scheduling. To check/record FSBS & bring to appointments. Labs ordered; will call with results when received. To make follow up appointment in 6 months. Reviewed red flags; what would warrant further evaluation. Assessment & Plan (05/01/2021 9:34 PM CDT): Copy of results from 04/26/21 given to Yamile Guerrero. Reviewed results at time of appointment. Lab Results Component Value Date HGBA1C 7.5 (H) 04/26/2021 HGBA1C 7.3 (H) 08/06/2020 HGBA1C 7.6 (H) 01/23/2020 Reviewed dietary/exercise recommendations. Instructed to perform daily foot check. Reviewed medication side effects & scheduling. To check/record FSBS & bring to appointments. To make follow up appointment in 6 months. Reviewed red flags; what would warrant further evaluation. Assessment & Plan (08/07/2020 10:33 PM PUTTY REMOVER): Lab Results Component Value Date HGBA1C 7.3 (H) 08/06/2020 HGBA1C 7.6 (H) 01/23/2020 HGBA1C 7.7 (H) 07/25/2019 Improvement in A1c. Reviewed labs from 08/06/20. Copy of results given to Mrs Guerrero. Reviewed dietary/exercise recommendations. Instructed to perform daily foot check. Reviewed medication side effects & scheduling. To check/record FSBS & bring to appointments. To make follow up appointment in 6 months. Reviewed red flags; what would warrant further evaluation. Assessment & Plan (01/30/2020 12:43 PM CDT): Lab Results Component Value Date HGBA1C 7.6 (H) 01/23/2020 HGBA1C 7.7 (H) 07/25/2019 HGBA1C 7.4 (H) 04/26/2019 Mrs Guerrero has noticed that BG does decrease w/exercise. Feels encouraged to continue to exercise. Discussed the need to strive for regular exercise (30min most days) and diet (get at least 4-5 servings of fruit and veggies daily). Watch carbs and simple sugars. Check the blood sugar 1 time per day. Check the feet daily for skin breakdown and infection. Assessment & Plan (08/01/2019 11:28 AM PUTTY REMOVER): Reviewed labs from 07/25/19. Lab Results Component Value Date HGBA1C 7.7 (H) 07/25/2019 HGBA1C 7.4 (H) 04/26/2019 HGBA1C 7.6 (H) 12/28/2018 Discussed increasing activity. Need to watch carb intake. Has not been checking fsbs--will resume. Reviewed dietary/exercise recommendations. Instructed to perform daily foot check. Reviewed medication side effects & scheduling. To check/record FSBS & bring to appointments. To make follow up appointment in 3 months. Reviewed red flags; what would warrant further evaluation. Assessment & Plan (05/02/2019 9:22 AM CDT): Reviewed labs from 04/26/19. Reviewed dietary/exercise recommendations. Instructed to perform daily foot check. Reviewed medication side effects & scheduling. To check/record FSBS & bring to appointments. Labs ordered; will call with results when received. To make follow up appointment in 3 months. Reviewed red flags; what would warrant further evaluation. Personal history of colonic polyps 12/06/2013 Overview (11/27/2016): Colon polyps Assessment & Plan (12/30/2022 11:37 AM CDT): C-scope 11/[address] Andrews, no polyps. Recommendation to repeat in 5 years with history of polyps on previous c-scope. Osteopenia 03/22/2013 Overview (11/28/2016): Osteopenia Fibrocystic breast changes 03/22/2013 Overview (11/28/2016): Fibrocystic breast changes Resolved Problems Problem Noted Date Diagnosed Date Resolved Date Refused influenza vaccine 11/01/2021 Assessment & Plan (11/03/2021 4:20 PM CDT): Discussed and the patient refuses immunization today. Educated regarding the need to vaccinate for personal protection and to limit the viruses in the community to protect those most vulnerable. Viral upper respiratory tract infection 11/01/2021 05/10/2022 Assessment & Plan (11/01/2021 10:52 AM PUTTY REMOVER): To flower picker otc mucinex to help thin out phelgm. To continue w/flonase, loratadine & saline nasal rinses. Chronic pansinusitis 07/17/2021 022 Bilateral otitis media with effusion 07/17/2021 11/03/2021 Class 1 obesity due to exces s calories with serious comorbidity and body mass index (BMI) of 30.0 to 30.9 in adult 05/02/2021 05/10/2022 Assessment & Plan (11/03/2021 4:20 PM CDT): Reviewed need to lose weight, reviewed health benefits. Reviewed recommendations for daily intake & activity 20-30 minutes/day. Discussed healthy diet and importance of regular physical activity. Planning to start new diet plan w/granddtr. Assessment & Plan (05/02/2021 10:07 AM CDT): Reviewed need to lose weight, reviewed health benefits. Reviewed recommendations for daily intake & activity 20-30 minutes/day. Discussed healthy diet and importance of regular physical activity. Need for influenza vaccination 08/07/2020 05/01/2021 Assessment & Plan (08/07/2020 10:56 AM PUTTY REMOVER): Discussed and the patient refuses immunization today. Educated regarding the need to vaccinate for personal protection and to limit the viruses in the community to protect those most vulnerable. Encounter for osteoporosis s creening in asymptomatic postmenopausal patient 08/07/202003/2021 Assessment & Plan (08/07/2020 11:06 AM PUTTY REMOVER): DEXA ordered. Will contact with results once received. BMI 30.0-30.9,adult 08/07/2020 05/01/20 21 Assessment & Plan (08/07/2020 11:08 AM PUTTY REMOVER): Reviewed need to lose weight, reviewed health benefits. Reviewed recommendations for daily intake & activity 20-30 minutes/day. Discussed healthy diet and importance of regular physical activity. Medicare annual wellness visit, initial 01/30/2020 08/07/2020 Assessment & Plan (01/30/2020 10:28 AM CDT): 1. Eat a healthy diet: focus on lean meats and proteins, more fruits, vegetables and whole grains and low in sugars and fats. Limit red meat and avoid processed meat. 2. Maintain a healthy weight; avoid being overweight. Aim for a normal body mass index (BMI) of 18.5-24.9. Help learning to eat healthier, we can set up appointment with nail galvanizer/military professional. 3. Have an active lifestyle, strive for 30 minutes of moderate exercise 5 times a week and strength or resistance training at least twice a week. 4. Use broad-spectrum (UVA+UVB) sunscreen with SPF 30 or greater, is water resistant, limit time spent in the sun (10 am-4pm), wear hat, wear UV protective clothing, wear sunglasses. Never use a tanning bed. Skin that was irradiated may be more sensitive over your lifetime. 5. Do not smoke or chew tobacco; participate in a smoking cessation program. 6. Limit alcohol intake, 1 drink per day for a woman BMI 31.0-31.9,adult 01/30/2020 08/07/20 20 Assessment & Plan (01/30/2020 12:45 PM CDT): Has increased activity. Congratulated on lifestyle changes. Reviewed need to lose weight, reviewed health benefits. Reviewed recommendations for daily intake & activity 20-30 minutes/day. Discussed healthy diet and importance of regular physical activity. Type 2 diabetes mellitus wit h hyperglycemia, without long-term current use of insulin ([facility]) 01/30/2020 11/03/2021 Need for pneumococcal vaccine 09/13/2019 08/07/2020 Assessment & Plan (09/13/2019 8:54 AM PUTTY REMOVER): prevnar 13 vaccine given today. Discussed possible tenderness/redness at injection site. BMI 30.0-30.9,adult 09/13/2019 01/30/20 20 Assessment & Plan (09/13/2019 8:54 AM PUTTY REMOVER): Reviewed need to lose weight, reviewed health benefits. Reviewed recommendations for daily intake & activity 20-30 minutes/day. Discussed healthy diet and importance of regular physical activity. Has lost 3# since last appt 08/01/19. BMI 36.0-36.9,adult 08/01/2019 01/30/20 20 Assessment & Plan (08/01/2019 11:24 AM PUTTY REMOVER): Reviewed need to lose weight, reviewed health benefits. Reviewed recommendations for daily intake & activity 20-30 minutes/day. Discussed healthy diet and importance of regular physical activity. Influenza vaccine administered 05/02/2019 01/30/2020 Assessment & Plan (05/02/2019 9:36 AM CDT): Flu vaccine given today. Discussed possible tenderness/redness at injection site. Essential hypertension 04/03/201408/07 Overview (11/27/2016): Hypertension Assessment & Plan (01/30/2020 12:45 PM CDT): The blood pressure is under good control. Ideally it should be under 130/80. Continue medications without adjustment. Continue efforts to eat well (4-5 fruits and veggies) daily and exercise for about 30 min nearly every day. Watch salt intake, keeping to less than 2000mg per day. Assessment & Plan (08/01/2019 11:25 AM PUTTY REMOVER): The blood pressure is under good control. Ideally it should be under 130/80. Continue medications without adjustment. Continue efforts to eat well (4-5 fruits and veggies) daily and exercise for about 30 min nearly every day. Watch salt intake, keeping to less than 2000mg per day. Limit alcohol. Include strategies to cope with stress. Labs reviewed today; copy of labs given to Mrs Guerrero. Has not been checking BP. Will p/u new BP cuff & check/log occasionally. Assessment & Plan (05/02/2019 9:21 AM CDT): The blood pressure is under good control. Ideally it should be under 130/80. Continue medications without adjustment. Continue efforts to eat well (4-5 fruits and veggies) daily and exercise for about 30 min nearly every day. Watch salt intake, keeping to less than 2000mg per day. Limit alcohol. Include strategies to cope with stress. Reviewed lab results from 04/26/19 Hyperlipidemia 04/03/2014 08/07/2020 Overview (11/27/2016): HLD - Hyperlipidemia Assessment & Plan (01/30/2020 12:44 PM CDT): 07/25/19 ig=170 HDL=45 KY=740 LLM=042 TC/HDL=4.0 01/30/20 JU=920 HDL=46 TG=91 RGZ=422 TC/HDL=3.6 Reviewed improvement in cholesterol panel. Patient should focus on limiting bad fats in the diet and using exercise as a way to improve the lipid status. Secondary prevention. Reviewed medications. Denies any statin Ses. Reviewed diet/exercise recommendations. Reviewed red flags. Assessment & Plan (08/01/2019 11:26 AM PUTTY REMOVER): Reviewed labs from 07/25/19: Lab Results Component Value Date CHOL 175 07/25/2019 CHOL 168 04/26/2019 CHOL 161 12/28/2018 HDL 45 07/25/2019 HDL 40 04/26/2019 HDL 41 12/28/2018 LDL 109 (H) 12/30/2017 LDL 91 06/23/2016 LDL 107 01/28/2016 TRIG 145 07/25/2019 TRIG 103 04/26/2019 TRIG 190 (H) 12/28/2018 Improvement in lipid panel. Encouraged to increase activity to maximize improvement. No changes at this time. Patient should focus on limiting bad fats in the diet and using exercise as a way to improve the lipid status. Secondary prevention. Reviewed medications. Lipid panel ordered; will call w/results when rec'd. Denies any statin Ses. Reviewed diet/exercise recommendations. Reviewed red flags. Assessment & Plan (05/02/2019 9:20 AM CDT): Reviewed labs from 04/26/19. We will check labs and make adjustments to medications as needed. Patient should focus on limiting bad fats in the diet and using exercise as a way to improve the lipid status. Secondary prevention. Reviewed medications. Lipid panel ordered; will call w/results when rec'd. Denies any statin Ses. Reviewed diet/exercise recommendations. Reviewed red flags. Obesity, diabetes, and hypertension syndrome 4 08/07/2020 Overview (11/28/2016): Metabolic syndrome Atrophic vaginitis 03/22/2013 0 Overview (11/27/2016): Postmenopausal atrophic vaginitis Encounters Date Type Department Care Team Description 05/22/2025 Telephone [facility] [address] [phone] Robert Meza MD Additional Services Or Orders 05/18/2025 [facility]phone [facility] [address] [phone] Robert Meza MD 05/04/2025 12:30 PM CDT Office Visit [facility] [address] [phone] Rocio Smith NP Hypertension associated with diabetes (HCC) (Primary Dx); Type 2 diabetes mellitus without complication, without long-term current use of insulin (HCC); Dyslipidemia associated with type 2 diabetes mellitus (HCC); BMI 22.0-22.9, adult 05/01/2025 11:40 AM CDT Lab [facility] [address] [place] [address] Type 2 diabetes mellitus with hyperglycemia, without long-term current use of insulin (HCC); Dyslipidemia associated with type 2 diabetes mellitus (HCC) 05/01/2025 Telephone [facility] [address] [place] [address] Rocio Smith NP 04/26/2025 Documentation [facility] [address] [place] [address] Robert Meza MD 04/12/2025 3:00 PM CDT Office Visit [facility] - [address] [place] [id number] Dayanna Jensen DO Dysfunction of left eustachian tube (Primary Dx) from Last 3 Months Immunizations Immunization Administration Dates Next Due Influenza, Quadrivalent, Hig h Dose, Preservative Free, Intrr 05/21/2023,05/06/2022,08/07/2020 Influenza, Quadrivalent, Spl it, Preservative Free, Intradermal 07/07/2016 Influenza, Quadrivalent, Spl it, Preservative Free, Intramuscular 07/01/2018,06/17/2017 Influenza, Trivalent, High D ose, Split, Preservative Free, Intramuscular 05/23/2024,05/02/2019 Influenza, Trivalent, IM (MDV) 05/29/2009 Influenza, Trivalent, Recomb inant, Egg Free, Preservative Free, Antibiotic Free, IM (FLUBLOK) 06/12/2014 Influenza, Unspecified 05/04/2025(Deferr ed: Patient Refused),11/01/2021(Deferred: Patient Refused) Pfizer SARS-CoV-2 Monovalent Vaccination (12+ Yrs) PURPLE 12/13/2020,11/22/2020 Pneumococcal Conjugate PCV 13 09/13/2019 Pneumococcal Conjugate Pcv20 09/21/2023 Pneumococcal Polysaccharide PPV23 07/01/2018, RSV Vaccine, Pref, Recombina nt, Subunit, Adjuvanted, PF, IM (Arexvy) 08/30/2023 Tdap 11/03/2012 ZOSTER Recombinant 11/30/2023,09/21/2023 Surgical History Surgery Date Site/Laterality Comments LAPAROSCOPIC ENDOMETRIOSIS FULGURATION Dysmenorrhea, endometriosis: Laparoscopy, ablation of endometriosis lesions CERVICAL CONE BIOPSY 08/24/1980 - 08/23/1981 Severe cervical dysplasia: D&C, cervical cone TUBAL LIGATION Laparoscopic tubal ligation TYMPANOSTOMY TUBE PLACEMENT EYE SURGERY Bilateral cataracts COLONOSCOPY 11/22/2017 - 12/21/2017 COLONOSCOPY 02/09/2023 CATARACT EXTRACTION Medical History Medical History Date Comments Hx Other Medical 2006 tsh Hx Other Medical -ENT Hx Other Medical -GI 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 Hx Other Medical JENN Polyp of colon 2002 colon polyps Diabetes mellitus Diabetes Hx Other Medical 311 Hyperlipidemia Hyperlipidemia Hx Other Medical 09/16/2010 Hospital Stay f or chest pain Hx Other Medical 02/23/2013 Tubes in ears Ear problems Sleep apnea Hypertension Type 2 diabetes mellitus Anxiety Cataract Depression GERD (gastroesophageal reflux disease) Family History Medical History Relation Name Comments Other Brother 3 Alive and well; Other Brother 4 Alive and well; Alcohol abuse Father Lan Jones Coronary artery disease Father Lan Jones Luma nary artery disease; Heart attack Father Lan Jones Myocardial infa rction; Other Father Lan Jones ; Alzheimer's disease Mother Mother Depression Mother Mother Diabetes Mother Mother Diabetes mellit us; Heart attack Mother Mother Heart disease Mother Mother Heart disease; high blood pressure diabetes senile dementia depression Hypertension Mother Mother Hypertension; Other Other No family histo ry of breast cancer; Relation Name Status Comments Brother 1 Alive Brother 2 Alive Brother 3 Brother 4 Father Lan Jones Pt is unsure of age Mother Mother (Age 83) Other Social History Tobacco Use Types Packs/Day Years Used Date Smoking Tobacco: Former Cigarettes 0 02/28/1968 - 02/27/2011 Smokeless Tobacco: Never Tobacco Cessation:Counseling Given: Not Answered Comments:Quit in 2010 Alcohol Use Standard Drinks/Week Comments No 0 (1 standard drink = 0.6 oz pur e alcohol) AUDIT-C Answer Date Recorded Frequency of Alcohol Consumption Not on file 07/05/2024 Q2: How many drinks containi ng alcohol do you have on a typical day when you are drinking? Patient does not drink Frequency of Binge Drinking Not on file 06/24 PHQ-2 Answer Date Recorded PHQ-2 Total Score (If total score is 3 or more points, staff should administer the PHQ-9) 1 05/04/2025 Personal Safety Answer Date Recorded Have you ever been in or are you currently in a harmful physical or emotional relationship or is someone making you feel afraid or unsafe? Denies 07/07/2024 Comments No Sex and Gender Information Value Date Recorded Sex Assigned at Not on file Legal Sex Female 6:01 PM PUTTY REMOVER Gender Identity Female 07/18/2020 9:02 AM PUTTY REMOVER Sexual Orientation Straight 05/14/2019 1: 13 PM CDT Occupation Industry Job Start Date Job End Date Retired Not on file Not on file Not on file Obstetrics History Para Term AB IAB SAB Ectopic Multiple Livin g Live Births 2 1 1 0 1 1 Date Outcome GA Total Labor Labor/2nd/3rd Weight Sex Type Anes PTL Zuri A1 A5 Name Clin Term AB Last Filed Vital Signs Vital Sign Reading Time Taken Comments Blood Pressure 116/82 05/04/2025 12:23 PM CDT Pulse 64 05/04/2025 12:23 PM CDT Temperature 36.7 C (98 F) 05/04/2025 12:23 PM CDT Respiratory Rate 17 05/04/2025 12:23 PM CDT Oxygen Saturation 99% 05/04/2025 12:23 PM CDT Inhaled Oxygen Concentration - - Weight 66.2 kg (146 lb) 05/04/2025 12:23 PM CDT Height 170.2 cm (5' 7.01) 05/04/2025 12:23 PM C DT Body Mass Index 22.86 05/04/2025 12:23 PM CDT Plan of Treatment Health Maintenance Due Date Last Done Comments Hepatitis B Screening 1968 DTaP/Tdap/Td Vaccine (2 - Td or Tdap) 11/03/2022 11/03/2012 Covid-19 Vaccine (3 - 2024-2 6 season) 2025 12/13/2020, 11/22/2020 Influenza Vaccine (#1) 2025 , 05/21/2023, 05/06/2022, Additional history exists Foot Exam 05/23/2025 05/23/2024, 04/25, 05/06/2022, Additional history exists Well Visit 65+ 10/27/2025 10/27/2024, 03/0 11/2023, 05/06/2022, Additional history exists Hemoglobin A1C 10/29/2025 05/01/2025, 09/25, 05/18/2024, Additional history exists Breast Cancer Screening-Mammogram 12/08/2025 12/08/2024, 10/31/2023, 10/09/2022, Additional history exists Albumin Creatinine Ratio, Urine 05/01/2026 05/01/2025, 05/18/2024, 12/29/2022, Additional history exists Lipid Panel 05/01/2026 05/01/2025, 09/25, 05/18/2024, Additional history exists eGFR 05/01/2026 05/01/2025, 09/25, 05/18/2024, Additional history exists Depression Screening 05/04/2026 05/04/2025, 10/27/2024, 05/23/2024, Additional history exists Fall Risk Assessment 05/04/2026 05/04/2025, 10/27/2024, 07/04/2024, Additional history exists Osteoporosis Screening-Bone Density Scan 02/23/2027 02/23/2025, 10/09/2022, 08/28/2020, Additional history exists Dilated Eye Exam 04/25/2027 04/25/2025, 09/2021, 01/29/2021, Additional history exists Colon Cancer Screening-Colonoscopy 02/10/2028 02/09/2023, 11/25/2017, 11/25/2017, Additional history exists Hepatitis C Screening Completed 11/18/2016 Colon Cancer Screening-CT Colonography Discontinued 02/09/2023, 11/25/2017, 11/25/2017, Additional history exists Colon Cancer Screening-DNA Stool Discontinued 02/09/2023, 11/25/2017, 11/25/2017, Additional history exists Colon Cancer Screening-FIT Discontinued 02/09, 11/25/2017, 11/25/2017, Additional history exists Colon Cancer Screening-Sigmoidoscopy Discontinued 02/09/2023, 11/25/2017, 11/25/2017, Additional history exists Pneumococcal vaccine 65+ Completed 024, 09/13/2019, 07/01/2018, Additional history exists Zoster Vaccine Completed 11/30/2023, 09/21/2023 Medical Devices Implanted Type Area Bread Jockey Device Identifier Shelf Expiration Date Model / Serial / Lot [employer]/Or tho [id number] Paparella 1.27mm Tab 2 Tube Ventilation Silicone Blue Myringotomy - [id number] Implanted:Qty: 1 on 06/06/2020 by Francisco Javier Medina MD at [facility] Left: Ear [employer]rt ho 02/21/2021 [id number] / / [id number] [employer] Tff-2718 Tenfuse 18x2.7mm Allograft Graft Bone Pip Sterile - [id number] Implanted:Qty: 1 on 10/17/2022 by Julio Rebolledo DPM at [facility] Right: Foot Proenza [employer] 10/10/2023 [id number] / / [id number] [employer] Tff-2718 Tenfuse 18x2.7mm Allograft Graft Bone Pip Sterile - [id number] Implanted:Qty: 1 on 10/17/2022 by Julio Rebolledo DPM at [facility] Right: Foot [employer] 10/10/2023 [id number] / / [id number] Procedures Procedure Name Priority Date/Time Associated Diagnosis Comments EGFR Routine 05/01/2025 11:36 AM CDT Dyslipidemia associated with type 2 diabetes mellitus (HCC) DIFFERENTIAL AUTO Routine 05/01/2025 11:36 AM CDT Dyslipidemia associated with type 2 diabetes mellitus (HCC) LIPID PANEL Routine 05/01/2025 11:36 AM CDT Dyslipidemia associated with type 2 diabetes mellitus (HCC) CBC WITH AUTO DIFFERENTIAL Routine 05/01/2025 11:36 AM CDT Dyslipidemia associated with type 2 diabetes mellitus (HCC) COMPREHENSIVE METABOLIC PANEL Routine 05/01/2025 11:36 AM CDT Dyslipidemia associated with type 2 diabetes mellitus (HCC) HEMOGLOBIN A1C Routine 05/01/2025 11:36 AM CDT Type 2 diabetes mellitus with hyperglycemia, without long-term current use of insulin (HCC) ALBUMIN CREATININE RATIO, URINE Routine 05/01/2025 11:36 AM CDT Type 2 diabetes mellitus with hyperglycemia, without long-term current use of insulin (HCC) DIABETIC EYE EXAM Routine 04/25/2025 DEXA AXIAL SKELETON BONE DENSITY 1 OR MORE SITES Schedule Routine, Read Routine (OP Routine) 02/23/2025 3:16 PM CDT Encounter for osteoporosis screening in asymptomatic postmenopausal patient SCREENING MAMMOGRAM BILATERAL W BORWN Schedule Routine, Read Routine (OP Routine) 12/08/2024 2:23 PM CDT Screening mammogram, encounter for COLONOSCOPY 02/09/2023 9:54 AM CDT DIABETES FOOT EXAM Routine 10/09/2017 HEPATITIS C SCREENING Routine 11/18/2016 from Last 3 Months or Most Recently Relevant to Health Maintenance Results * eGFR (05/01/2025 11:36 AM CDT) eGFR 83 >=60 mL/min/1. 73 m2 Comment: Interpretive Data Reference Interval Normal >/= 90 mL/min/1.73m2 Mildly decreased* 60 - 89 mL/min/1.73m2 Mildly to moderately decreased 45 - 59 mL/min/1.73m2 Moderately to severely decreased 30 - 44 mL/min/1.73m2 Severely decreased 15 - 29 mL/min/1.73m2 Kidney Failure < 15 mL/min/1.73m2 *Relative to young adult level Estimated glomerular filtration rate is determined by the 2020 CKD-EPI equation recommended by the National Kidney Foundation (A Unifying Approach to GFR Estimation: Recommendations of the NKF-ASK Task Force on Reassessing the Inclusion of Race in Diagnosing Kidney Disease, JASN 2020). The CKD-EPI equation should not be used for patients with unstable renal function and has not been validated in children and those over 70. Current interpretive data was last reviewed 2021. Testing performed by: [address] [address] Blood 05/01/2025 11:3 6 AM CDT 05/01/2025 7:48 PM CDT Rocio Smith FLOOR INSTALLATION MECHANIC LAB BLOOD ORDERABLES Final Result [facility] [place] [address] * Differential, auto (05/01/2025 11:36 AM CDT) Neutrophil abs 1.83 1.50 - 6.50 K/cumm Comment:Testing performed by : [address], [address] Imm gran abs 0.01 0.00 - 0.10 K/cumm [facility] ([place]) Comment:Testing performed by : [address], [address] Lymphocyte abs 2.09 0.80 - 3.30 K/cumm [facility] ([place]) Comment:Testing performed by : [address] [address] Monocyte abs 0.36 0.20 - 0.80 K/cumm [facility] ([place]) Comment:Testing performed by : [address], [address] Eosinophil abs 0.04 0.00 - 0.50 K/cumm [facility] ([place]) Comment:Testing performed by : [address] [address] Basophil abs 0.03 0.00 - 0.10 K/cumm [facility] ([place]) Comment:Testing performed by : [address], [address] Neutrophil pct 42.0 % [facility] ([place]) Comment: Interpretive Data Percent cell count reference ranges are not reported, since discordance with absolute values may lead to misinterpretation of CBC data. Current Interpretive Data was last revised on 2017. Testing performed by: [facility], [address] [place] [address]., [id number] Imm gran pct 0.2 % [facility] (ERIN) Comment: Interpretive Data Percent cell count reference ranges are not reported, since discordance with absolute values may lead to misinterpretation of CBC data. Current Interpretive Data was last revised on 2017. Testing performed by: [facility], [address] [place] [address], [id number] Lymphocyte pct 47.9 % [facility] (ERIN) Comment: Interpretive Data Percent cell count reference ranges are not reported, since discordance with absolute values may lead to misinterpretation of CBC data. Current Interpretive Data was last revised on 2017. Testing performed by: [facility], [address] [place] [address]., [address] Monocyte pct 8.3 % [facility] (ERIN) Comment: Interpretive Data Percent cell count reference ranges are not reported, since discordance with absolute values may lead to misinterpretation of CBC data. Current Interpretive Data was last revised on 2017. Testing performed by: [address] [address] Eosinophil pct 0.9 % [facility] (ERIN) Comment: Interpretive Data Percent cell count reference ranges are not reported, since discordance with absolute values may lead to misinterpretation of CBC data. Current Interpretive Data was last revised on 2017. Testing performed by: [address] [address] Basophil pct 0.7 % [facility] (ERIN) Comment: Interpretive Data Percent cell count reference ranges are not reported, since discordance with absolute values may lead to misinterpretation of CBC data. Current Interpretive Data was last revised on 2017. Testing performed by: [address], [address] Blood 05/01/2025 11:3 6 AM CDT 05/01/2025 5:47 PM CDT Rocio Smith FLOOR INSTALLATION MECHANIC LAB BLOOD ORDERABLES Final Result [facility] (ERIN) 1 [facility] [place] [address] * (ABNORMAL) CBC with auto differential (05/01/2025 11:36 AM CDT) WBC 4.36 3.80 - 9.90 K/cumm Comment:Testing performed by : [facility], [address] [place] [address], [address] Hgb 12.5 11.9 - 15.5 g/dL [facility] (ERIN) Comment:Testing performed by : [address], [address] Hct 39.0 35.6 - 45.5 % [facility] (ERIN) Comment:Testing performed by : [address], [address] Plt 161 150 - 400 K/cumm [facility] (ERIN) Comment:Testing performed by : [address], [address] MPV 11.6 9.1 - 12.3 fL [facility] (ERIN) Comment:Testing performed by : [address], [address] RBC 3.96 3.90 - 5.20 M/cumm [facility] (ERIN) Comment:Testing performed by : [address], [address] MCV 98.5(H) 81.3 - 96.4 fL [facility] (ERIN) Comment:Testing performed by : [address], [address] MCH 31.6 27.1 - 33.3 pg [facility] (ERIN) Comment:Testing performed by : [address], [address] MCHC 32.1(L) 32.3 - 35.7 g/dL [facility] (ERIN) Comment:Testing performed by : [address], [address] RDW CV 11.9 11.1 - 14.9 % [facility] (ERIN) Comment:Testing performed by : [facility], [address] [place] [address]., [address] RDW SD 43.2 35.7 - 48.1 fL FRANCISCA CHUN (ERIN) Comment:Testing performed by : [facility], [address] [place] [address]., [address] NRBC abs 0.00 0.00 - 0.01 K/cumm FRANCISCA CHUN (ERIN) Comment:Testing performed by : [facility], [address] [place] [address], [address] Blood 05/01/2025 11:3 6 AM CDT 05/01/2025 5:47 PM CDT Rocio Smith FLOOR INSTALLATION MECHANIC LAB BLOOD ORDERABLES Final Result Performing Organization Address [facility]/ZIP Co de Phone Number FRANCISCA CHUN (ERIN) 1 [facility] [place] [address] * Albumin Creatinine Ratio, Urine (05/01/2025 11:36 AM CDT) Albumin Ur <12.0 mg/L Comment: Interpretive Data No reference range established. Current interpretive data was last revised 2019. Testing performed by: [facility], [address] [place] [address]., [address] Creatinine Ur 54.4 mg/dL FRANCISCA CHUN (ERIN) Comment: Interpretive Data No reference range established. Current interpretive data was last revised 2019. Testing performed by: [address], [address] Albumin Creatinine Ratio, Ur <22 1 - 29 mg/g FRANCISCA CHUN (ERIN) Comment:Testing performed by : [address] [address] Urine 05/01/2025 11:3 6 AM CDT 05/01/2025 5:47 PM CDT Rocio Smith NP LAB URINE ORDERABLES Final Result Performing Organization Address City/[facility]/ZIP Co de Phone Number FRANCISCA CHUN (ERIN) 1 [facility] [place] [address] * Hemoglobin A1c (05/01/2025 11:36 AM CDT) Hgb A1C 5.3 4.0 - 5.6 % Comment:Testing performed by : [facility], [address] [place] [address]., [address] Estimated Average Glucose 105 mg/dL PEBBLESTEODORA ADIEL (ERIN) Comment: The ADA recommends reporting an estimated Average Glucose (eAG) with all Hemoglobin A1c results using the equation derived from a study of 507 normal and diabetic adults. Minority populations were underrepresented and children were not included. (Diabetes Care 31:9179-5737, 2008). The eAG is not equivalent to a fasting glucose. Testing performed by: [facility], [address] [place] [address]., [address] Blood 05/01/2025 11:3 6 AM CDT 05/01/2025 5:47 PM CDT Rocio Smith NP LAB BLOOD ORDERABLES Final Result FRANCISCA CHUN ERIN) 1 [facility] [address] * (ABNORMAL) Lipid panel (05/01/2025 11:36 AM CDT) Pathologist [facility] Cholesterol 115 30 - 199 mg/dL Comment: Interpretive Data Ages < or = 19 years Acceptable: <170 mg/dL Borderline high: 170-199 mg/dL High: >or= 200 mg/dL Ages > or = 20 years Desirable: <200 mg/dL Borderline high: 200-239 mg/dL High: >or= 240 mg/dL Literature References: 1. Expert Panel on Integrated Guidelines for Cardiovascular Health and Risk Reduction in Children and Adolescents. Pediatrics 2011;128:S213 2. NCEP Expert Panel. Circulation 2004;110:227 Current Interpretive Data was last revised on 2018. Testing performed by: [facility], [address] [place] [address], [place]., [address] Triglycerides 65 <=149 mg/dL FRANCISCA CHUN (ERIN) Comment: Interpretive Data Ages < or = 9 years Acceptable: <75 mg/dL Borderline high: 75-99 mg/dL High: >or= 100 mg/dL Ages 10 to 20 years Acceptable: <90 mg/dL Borderline high: 90-129 mg/dL High: >or= 130 mg/dL Ages > or = 20 years Desirable: <150 mg/dL Borderline high: 150-199 mg/dL High: 200-499 mg/dL Very high: >or= 499 mg/dL Literature References: 1. Expert Panel on Integrated Guidelines for Cardiovascular Health and Risk Reduction in Children and Adolescents. Pediatrics 2011;128:S213 2. NCEP Expert Panel. Circulation 2004;110:227 Current Interpretive Data was last revised on 2018. Testing performed by: [facility], [address] [place] [address]., [address] HDL 34(L) >=40 mg/dL FRANCISCA ODEN) Comment: Interpretive Data Ages < or = 19 years Acceptable: >45 mg/dL Borderline low: 40-45 mg/dL Low: <40 mg/dL Ages > or = 20 years Desirable: >or= 60 mg/dL Low: <40 mg/dL Literature References: 1. Expert Panel on Integrated Guidelines for Cardiovascular Health and Risk Reduction in Children and Adolescents. Pediatrics 2011;128:S213 2. NCEP Expert Panel. Circulation 2004;110:227 Current Interpretive Data was last revised on 2018. Testing performed by: [facility], [address] [place] [address]., [address] LDL, calculated 67 <=129 mg/dL FRANCISCA CHUN (ERIN) Comment: Interpretive Data Ages < or = 19 years Acceptable: <110 mg/dL Borderline high: 110-129 mg/dL High: >or= 130 mg/dL Ages > or = 20 years Optimal: <100 mg/dL Near optimal: 100-129 mg/dL Borderline high: 130-159 mg/dL High: >160 mg/dL Calculated using the Valentino LDL-C estimating equation. This equation was implemented on 2024. Prior to this date LDL-C was estimated using the Friedewald equation. Literature References: 1. Expert Panel on Integrated Guidelines for Cardiovascular Health and Risk Reduction in Children and Adolescents. Pediatrics 2011;128:S213 2. NCEP Expert Panel. Circulation 2004;110:227 3. Chicho M et al. WILLOW Cardiol. 2019December 22;5(5):540-548. doi: 10.1001/[email or web address] Current Interpretive Data was last revised on 2024. Testing performed by: [address] [address] Non-HDL Cholesterol 81 mg/dL FRANCISCA CHUN (ERIN) Comment: Interpretive Data Ages < or = 19 years Acceptable: <120 mg/dL Borderline high: 120-144 mg/dL High: >145 mg/dL Ages > or = 20 years When triglycerides are >200 mg/dL, Non-HDL cholesterol is a secondary target of therapy with treatment goals that are 30 mg/dL greater than the LDL cholesterol target. Literature References: 1. Expert Panel on Integrated Guidelines for Cardiovascular Health and Risk Reduction in Children and Adolescents. Pediatrics 2011;128:S213 2. NCEP Expert Panel. Circulation 2004;110:227 Current Interpretive Data was last revised on 2018. Testing performed by: [facility], [address] [place] [address]., [address] Chol/HDL ratio 3 SHANON CHUN (ERIN) Comment:Testing performed by : [address] [address] Blood 05/01/2025 11:3 6 AM CDT 05/01/2025 5:47 PM CDT Rocio Smith NP LAB BLOOD ORDERABLES Final Result FRANCISCA CHUN (ERIN) 1 [facility] Department [place] [address] * Comprehensive metabolic panel (05/01/2025 11:36 AM CDT) [facility] Signature Sodium 141 135 - 145 mmol/L Comment:Testing performed by : [address] [address] Potassium, pl 4.2 3.3 - 4.9 mmol/L FRANCISCA CHUN (ERIN) Comment:Testing performed by : [address] [address] Chloride 104 97 - 110 mmol/L [facility] (ERIN) Comment:Testing performed by : [facility], [address] [place] [address]., [address] CO2 26 22 - 32 mmol/L [facility] (ERIN) Comment:Testing performed by : [address], [address] Anion gap 11 2 - 15 mmol/L [facility] (ERIN) Comment:Testing performed by : [address], [address] BUN 13 6 - 25 mg/dL [facility] (ERIN) Comment:Testing performed by : [address], [address] Creatinine 0.76 0.60 - 1.10 mg/dL [facility] (ERIN) Comment:Testing performed by : [address], [address] Glucose 100 70 - 199 mg/dL [facility] (ERIN) Comment: Interpretive Data Fasting glucose >/= 126 mg/dl is diagnostic for diabetes. Fasting is defined as no caloric intake for at least 8 hours. Fasting glucose between 100 mg/dl to 125 mg/dl is diagnostic of prediabetes. In a patient with classic symptoms of hyperglycemia or hyperglycemic crisis, a random glucose >/= 200 mg/dl is diagnostic for diabetes. In the absence of unequivocal hyperglycemia, results should be confirmed by repeat testing. The classification and Diagnosis of Diabetes Diabetes Care 2021; 46: S19-S40. Current interpretive data was last revised 2022. Testing performed by: [address], [address] Calcium 9.2 8.5 - 10.3 mg/dL [facility] (ERIN) Comment:Testing performed by : [address], [address] Bilirubin, total 0.4 0.1 - 1.2 mg/dL [facility] (ERIN) Comment:Testing performed by : [address], [address] Protein, pl 7.0 6.5 - 8.5 g/dL [facility] (ERIN) Comment:Testing performed by : [address] [address] Albumin 4.0 3.5 - 5.0 g/dL [facility] (ERIN) Comment:Testing performed by : [facility], [address] [place] [address]., [address] Alk phos 78 40 - 130 Units/L [facility] (ERIN) Comment:Testing performed by : [facility], [address] [place] [address], [address] ALT 11 7 - 45 Units/L [facility] (ERIN) Comment:Testing performed by : [facility], [address] [place] [address], [address] AST 20 10 - 45 Units/L [facility] (ERIN) Comment:Testing performed by : [facility], [address] [place] [address], [address] Blood 05/01/2025 11:3 6 AM CDT 05/01/2025 5:47 PM CDT Rocio Smith NP LAB BLOOD ORDERABLES Final Result [facility] (ERIN) 1 [facility] Department [place] [address] * Diabetic Eye Exam (04/25/2025) 04/25/2025 Historical Provider HEALTH MAINTENANCE Final Result * Dexa Axial Skeleton Bone Density 1 or 2 Site (02/23/2025 3:16 PM CDT) Anatomical Region Laterality Modality Body N/A Other 02/23/2025 4:24 PM CDT Narrative 02/23/2025 4:25 PM CDT EXAM DESCRIPTION: DEXA AXIAL SKELETON BONE DENSITY 1 OR MORE SITES REASON FOR STUDY: 74 y/o year old F with given history of: Postmenopausal status. Patient has taken/is taking vitamin-D and calcium. Bread Jockey/Model: eJamming Discovery SL (S/N [id number]) Facility LSC value of 0.022 for the AP spine, 0.027 for the femur, and 0.023 for the forearm. CLINICAL INFORMATION: Current height: 67 inches Maximum height: 67.5 inches Weight: 152.4 pounds Risk factors: None COMPARISON: 10/09/2022 FINDINGS: AP LUMBAR SPINE L1-L4: Total BMD is 1.096 g/cm2 T-score is 0.4 This is a 4.9% decrease in comparison to prior exam which is statistically significant. LEFT HIP: Total BMD is 0.773 g/cm2 T-score is -1.4 This is a 13% decrease in comparison to prior exam which is statistically significant. Femoral neck BMD is 0.769 g/cm2 T-score is -0.7 FRAX: 10 year risk for a major osteoporotic fracture is 8.5 %, 10 year risk for a hip fracture is 0.9 % Per National Osteoporosis Foundation guidelines, this patient does not meet the criteria for pharmacological treatment of patients with FRAX 10 year major osteoporotic fracture risk scores of = or greater than 20% or a 10 year probability of a hip fracture = or greater than 3%, to reduce fracture risk. Additional factors such as frequent falls are not represented in FRAX and warrant individual clinical judgment. IMPRESSION: 1. Low bone mass REFERENCE: Bone mineral density: T-Score: Normal (T-score above or = -1.0) Low bone mass (T-score between -1.0 and -2.5) replaces the previously used term osteopenia Osteoporosis (T-score = or below -2.5) Z-Score: Within the expected range for age (Z-score above -2.0) Below the expected range for age (Z-score is -2.0 or below) Please see below follow up recommendations. Medical evaluation for secondary causes of low bone mineral density may be appropriate. FRAX is a World Health Organization validated fracture risk assessment tool that calculates a person's 10 year probability of a major osteoporosis related fracture and hip fracture. According to the National Osteoporosis Foundation guidelines, postmenopausal women and men age 50 or older with low bone mass and a 10 year probability of a major osteoporosis related fracture = or greater than 20% or a 10 year probability of a hip fracture = or greater than 3% should be considered for pharmacological treatment for the prevention of osteoporosis. For further information, including treatment recommendations, please refer to the 2019 ISCD Official Positions (http://www.iscd.org) and the NOF's Clinician's Guide to Prevention and Treatment of Osteoporosis (http://www.nof.org/professionals/clinical-guidelines) THIS IS AN ELECTRONICALLY VERIFIED FINAL REPORT 02/23/2025 4:25 PM - Electronically signed by Amberly Farris M.D. TW: TW Report ID: [id number] Reading Location: [id number] Procedure Note Amberly Farris MD - 02/23/2025 EXAM DESCRIPTION: DEXA AXIAL SKELETON BONE DENSITY 1 OR MORE SITES REASON FOR STUDY: 74 y/o year old F with given history of:Postmenopausal status. Patient has taken/is taking vitamin-D and calcium. Bread Jockey/Model: eJamming Discovery SL (S/N [id number]) Facility LSC value of 0.022 for the AP spine, 0.027 for the femur, and0.023 for the forearm. CLINICAL INFORMATION: Current height: 67 inches Maximum height: 67.5 inches Weight: 152.4 pounds Risk factors: None COMPARISON: 10/09/2022 FINDINGS: AP LUMBAR SPINE L1-L4: Total BMD is 1.096 g/cm2 T-score is 0.4 This is a 4.9% decrease in comparison to prior exam which is statistically significant. LEFT HIP: Total BMD is 0.773 g/cm2 T-score is -1.4 This is a 13% decrease in comparison to prior exam which is statistically significant. Femoral neck BMD is 0.769 g/cm2 T-score is -0.7 FRAX: 10 year risk for a major osteoporotic fracture is 8.5 %, 10 year risk fora hip fracture is 0.9 % Per National Osteoporosis Foundation guidelines, this patient does notmeet the criteria for pharmacological treatment of patients with FRAX 10 yearmajor osteoporotic fracture risk scores of = or greater than 20% or a 10 year probability of a hip fracture = or greater than 3%, to reduce fracturerisk. Additional factors such as frequent falls are not represented in FRAX and warrant individual clinical judgment. IMPRESSION: 1. Low bone mass REFERENCE: Bone mineral density: T-Score: Normal (T-score above or = -1.0) Low bone mass (T-score between -1.0 and -2.5) replaces thepreviously used term osteopenia Osteoporosis (T-score = or below -2.5) Z-Score: Within the expected range for age (Z-score above -2.0) Below the expected range for age (Z-score is -2.0 or below) Please see below follow up recommendations. Medical evaluation forsecondary causes of low bone mineral density may be appropriate. FRAX is a World Health Organization validated fracture risk assessmenttool that calculates a person's 10 year probability of a major osteoporosisrelated fracture and hip fracture. According to the National OsteoporosisFoundation guidelines, postmenopausal women and men age 50 or older with low bonemass and a 10 year probability of a major osteoporosis related fracture = or greater than 20% or a 10 year probability of a hip fracture = or greaterthan 3% should be considered for pharmacological treatment for the preventionof osteoporosis. For further information, including treatment recommendations, please referto the 2019 ISCD Official Positions (http://www.iscd.org) and the NOF's Clinician's Guide to Prevention and Treatment of Osteoporosis (http://www.nof.org/professionals/clinical-guidelines) THIS IS AN ELECTRONICALLY VERIFIED FINAL REPORT 02/23/2025 4:25 PM - Electronically signed by Amberly Farris M.D. TW: TW Report ID: [id number] Reading Location: [place] [address] Rocio Smith FLOOR INSTALLATION MECHANIC IMG DXA PROCEDURES Final Re sult * Screening Mammogram Bilateral W Brown (12/08/2024 2:23 PM CDT) Anatomical Region Laterality Modality Breast Bilateral Mammography Impressions 12/08/2024 2:46 PM CDT Bilateral No evidence of malignancy in either breast. OVERALL BI-RADS FINAL ASSESSMENT: 1 - Negative RECOMMENDATION: Recommend bilateral annual screening mammography. Narrative 12/08/2024 2:46 PM CDT EXAMINATION: Screening Mammogram Bilateral W Brown: 12/08/2024 COMPARISON: Relevant prior studies available at the time of interpretation were reviewed. TECHNIQUE: Mammography was performed with 2D and digital breast tomosynthesis (DBT) images. CAD was utilized. BREAST PARENCHYMAL COMPOSITION: The breasts are almost entirely fatty. FINDINGS: Bilateral There is no suspicious mass, calcification, or architectural distortion in either breast. us Self Screening Mammogram IMG MAMMO PROCEDURES Fi nal Result * COLONOSCOPY (02/09/2023 9:54 AM CDT) Anatomical Region Laterality Modality Other Narrative Procedure Note Wilber Fontana MD - 02/09/2023 9:[address] [facility] Patient Name: Yamile Guerrero Procedure Date: 02/09/2023 9:54 AM Date of : 1950 Admit Type: Outpatient Age: 72 Gender: Female Attending MD: Wilber Fontana M.D. Room: [facility] END[facility]COPY ROOM 2 Note Status: Finalized Patient Profile: Refer to note in patient chart for documentation of history and physical. Procedure: Colonoscopy Indications: High risk colon cancer surveillance: Personalhistory of colonic polyps, Last colonoscopy: November 2017 Referring MD: Robert Meza M.D. Providers: Wilber Fontana M.D. Impression: - Hemorrhoids found on perianal exam. - Diverticulosis in the sigmoid colon and in the descending colon. - The examination was otherwise normal. - No specimens collected. Recommendation: - Discharge patient to home. - Resume previous diet. - Continue present medications. - Repeat colonoscopy in 10 years [facility]. - Return to primary care physician as previously scheduled. Medicines: Propofol per Anesthesia Complications: No immediate complications. Estimated Blood Loss: Estimated blood loss: none. Procedure: Pre-Anesthesia Assessment: - This assessment was completed [Time ofAssessment] prior to the administration of sedation. The benefits, risks and alternatives of theprocedure and sedation were discussed and informed consentwas obtained. All questions were answered. Please referto the signed informed consent document in the medical record. The bowel preparation used was Miralax via single dose instruction. The bowel preparation used was bisacodyl tablets via single dose instruction.The scope was passed under direct vision. TheColonoscope [id number] was introduced through the anus and advanced to the the cecum, identified by appendiceal orifice and ileocecal valve. The colonoscopy was performed without difficulty. The patient tolerated the procedure well. The qualityof the bowel preparation was good. The ileocecalvalve, appendiceal orifice, and rectum werephotographed. Findings: Hemorrhoids were found on perianal exam. Multiple small and large-mouthed diverticula were found in thesigmoid colon and descending colon. The exam was otherwise without abnormality. Electronically signed by Wilber Fontana M.D. Wilber Fontana M.D. 02/09/2023 10:57:45 AM Number of Addenda: 0 Note Initiated On: 02/09/2023 9:54 AM Procedure Code(s): --- Professional --- G0105, Colorectal cancer screening; colonoscopy on individual at high risk --- Technical --- G0105, Colorectal cancer screening; colonoscopy on individual at high risk Diagnosis Code(s): --- Professional --- K57.30, Diverticulosis of large intestine without perforation orabscess without bleeding K64.9, Unspecified hemorrhoids Z86.010, Personal history of colonic polyps --- Technical --- K57.30, Diverticulosis of large intestine without perforation orabscess without bleeding K64.9, Unspecified hemorrhoids Z86.010, Personal history of colonic polyps CPT copyright 2020 [employer]. All rights reserved. The codes documented in this report are preliminary and upon cream dipper reviewmay be revised to meet current compliance requirements. Recognized by the [employer] for promoting quality in endoscopy Wilber Fontana MD ENDOSCOPY PROCEDURES Final Re sult * DIABETES FOOT EXAM (10/09/2017) [facility] Diabetic Foot Exam Normal SCRIBED DM FOOT SITES SENSED 6 Comment:01/27 sensed Historical Provider HEALTH MAINTENANCE Final Result * HEPATITIS C SCREENING (11/18/2016) [facility] HEP C Normal Comment:NEGATIVE Historical Provider HEALTH MAINTENANCE Final Result from Last 3 Months or Most Recently Relevant to Health Maintenance Insurance MEDICARE AETNA SENIOR SUPPLEMENT MEDICARE AETNA SENIOR SUPPLEMENT AETNA MEDICARE AETNA SENIOR SUPPLEMENT Advance Directives For more information, please contact: [phone] * Full Code (Latest Code Status on File) Date Activated Date Inactivated Comments 02/09/2023 9:08 AM 02/09/2023 3:50 PM * Full Code Date Activated Date Inactivated Comments 02/09/2023 9:08 AM 02/09/2023 9:08 AM * Full Code Date Activated Date Inactivated Comments 10/17/2022 3:10 PM 10/17/2022 9:02 PM Care Teams Supplier Development Manager Relationship Specialty Start Date End Date Robert Meza [place] [address] [address] PCP - General Family Medicine 10/09/17
--- OUTSIDE RECORDS SUMMARY | 2025-06-21 14:02 | XMS_ITS | Clinical Summary ---
Author Organization [facility] Address [address] [address] Phone Care Team Providers Care Clip On Sunglasses Assembler Name Role Phone Robert Meza MD Primary Care Provider [phone] Allergies No known active allergies Medications metFORMIN (GLUCOPHAGE) 1000 MG Tablet Take 1,000 mg by mouth 2 times daily (with meals). Active amLODIPine (NORVASC) 5 MG Tablet Take 5 mg by mouth daily. Active losartan-hydroch lorothiazide (HYZAAR) 50-12.5 MG TabletIndication s:320/25mg od Take 1 Tab by mouth daily. Active metoprolol Succinate (TOPROL-XL) 50 MG TABLET SR 24 HR Take 25 mg by mouth daily. Active citalopram (CELEXA) 20 MG Tablet Take 20 mg by mouth daily. Active Calcium-Vitamin D 500-125 MG-UNIT Tablet Take by mouth. Active Coenzyme Q10 (COQ10) 100 MG Capsule Take by mouth. Active aspirin EC 81 MG Tablet Delayed Response Take 81 mg by mouth daily. Active atorvastatin (LIPITOR) 10 MG Tablet Take 10 mg by mouth daily. Active LOSARTAN POTASSIUM PO Take by mouth. Active Family History Medical History Relation Name Comments High Cholesterol Father Diabetes Mother Heart Surgery Mother High Cholesterol Mother Hypertension Mother Osteoarthritis Mother Relation Name Status Comments Father Mother Social History Tobacco Use Types Packs/Day Years Used Date Smoking Tobacco: Former Cigarettes 1.5 39 0 12/04/1966 - 12/04/2005 Smokeless Tobacco: Never Alcohol Use Standard Drinks/Week Comments No 0 (1 standard drink = 0.6 oz pur e alcohol) Comments Unknown Sex and Gender Information Value Date Recorded Sex Assigned at Not on file Legal Sex Female 10:10 PM CDT Gender Identity Not on file Sexual Orientation Not on file Occupation Industry Job Start Date Job End Date 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 Not on file Not on perri e Not on file Last Filed Vital Signs Vital Sign Reading Time Taken Comments Blood Pressure 131/75 11/25/2017 10:35 AM CDT Pulse 65 11/25/2017 10:35 AM CDT Temperature 37 C (98.6 F) 11/25/2017 10:35 AM CDT Respiratory Rate 15 11/25/2017 10:35 AM CDT Oxygen Saturation 97% 11/25/2017 10:35 AM CDT Inhaled Oxygen Concentration - - Weight 90.7 kg (200 lb) 11/20/2017 11:00 AM CDT Height 157.5 cm (5' 2) 11/20/2017 11:00 AM CDT Body Mass Index 36.58 11/20/2017 11:00 AM CDT Plan of Treatment Health Maintenance Due Date Last Done Comments Hepatitis C Virus (HCV) Screening 1950 TdaP Immunization 1950 Cologuard 1997 Immunochemical Fecal Occult Blood 1997 Pneumococcal Immunization (5 0+ years) (1 of 1 - PCV) 2002 Zoster Immunization (1 of 2) 2002 Medicare Initial AWV [id number] 07/24/2018 Colonoscopy 11/25/2022 11/25/2017, 08/31/2015 Colorectal Cancer Screening 11/25/2022 Influenza Immunization (#1) 2025 07/07/2016 SARS-COV-2 Immunization ( season) 2025 Respiratory Syncytial Virus (RSV) Immunization (Adult) (1 - 1-dose 75+ series) 2027 Hepatitis B Immunization Aged Out No longer eligible based on patient's age to complete this topic Human Papillomavirus (HPV) Immunization Aged Out No longer eligible b ased on patient's age to complete this topic Meningococcal Immunization (ACWY) Aged Out No longer eligible b ased on patient's age to complete this topic Rotavirus Immunization Aged Out No lo nger eligible based on patient's age to complete this topic Insurance MEDICARE [email or web address] Care Teams Clip On Sunglasses Assembler Relationship Specialty Start Date End Date Robert Meza MD [address] [place] [address] PCP - General Internal Medicine 11/24/17
--- OUTSIDE RECORDS SUMMARY | 2025-06-21 14:02 | XMS_ITS | Encounter Summary ---
Author Organization [facility] Healthcare Address [address] [place] [address] Care Team Providers Care Refinery Operator Helper Cracking Unit Name Role Phone Robert Meza MD Primary Care Provider [phone] Christina Richmond MA Unavailable Reason for Visit * Reason Onset Date Comments Scheduling Appointments 08/27/2020 Reminder call for DEXA Encounter Details Date Type Department Care Team (Late st Contact Info) Description 08/27/2020 Telephone [facility] [address] [place] [id number] Yaron Fernandes RT Scheduling Appointments (Reminder call for DEXA ) Social History Tobacco Use Types Packs/Day Years Used Date Smoking Tobacco: Former Cigarettes Smokeless Tobacco: Former Alcohol Use Standard Drinks/Week Comments No 0 (1 standard drink = 0.6 oz pur e alcohol) PHQ-2 Answer Date Recorded PHQ-2 Total Score 0 08/07/2020 Comments No Sex and Gender Information Value Date Recorded Sex Assigned at Not on file Legal Sex Female 6:01 PM TOWER HELPER Gender Identity Female 07/18/2020 9:02 AM TOWER HELPER Sexual Orientation Straight 05/14/2019 1: 13 PM CDT Occupation Industry Job Start Date Job End Date Retired Not on file Not on file Not on file documented as of this encounter Plan of Treatment Not on file documented as of this encounter Visit Diagnoses Not on filedocumented in this encounter Additional Health Concerns Infection Onset Date Last Indicated Resolved Time COVID: Suspected 09/29/2022 09/29/2022 09/29/2022 10:20 AM TOWER HELPER documented as of this encounter Care Teams Refinery Operator Helper Cracking Unit Relationship Specialty Start Date End Date Robert Meza MD [address] [place] [place] [place] [address] PCP - General Family Medicine 10/09/17 Christina Richmond MA [address] [place] [address] [address] [place] [address] ACO Care Steel Hanger 09/30/22 09/30/22 documented as of this encounter
--- OUTSIDE RECORDS SUMMARY | 2025-06-21 14:02 | XMS_ITS | Encounter Summary ---
Author Organization [facility] Healthcare Address [address] [place] [address] Care Team Providers Care Receptionist Telephone Operator Name Role Phone Robert Meza MD Primary Care Provider [phone] Christina Richmond MA Unavailable [phone] Encounter Details Date Type Department Care Team (Late st Contact Info) Description 08/23/2020 Telephone [facility] [address] [place] [id number] [address]i [place], RT Social History Tobacco Use Types Packs/Day Years Used Date Smoking Tobacco: Former Cigarettes Smokeless Tobacco: Former Alcohol Use Standard Drinks/Week Comments No 0 (1 standard drink = 0.6 oz pur e alcohol) PHQ-2 Answer Date Recorded PHQ-2 Total Score 0 08/07/2020 Comments No Sex and Gender Information Value Date Recorded Sex Assigned at Not on file Legal Sex Female 6:01 PM INFORMATION TECHNOLOGY CONSULTANT Gender Identity Female 07/18/2020 9:02 AM INFORMATION TECHNOLOGY CONSULTANT Sexual Orientation Straight 05/14/2019 1: 13 PM CDT Occupation Industry Job Start Date Job End Date Retired Not on file Not on file Not on file documented as of this encounter Plan of Treatment Not on file documented as of this encounter Visit Diagnoses Not on filedocumented in this encounter Additional Health Concerns Infection Onset Date Last Indicated Resolved Time COVID: Suspected 09/29/2022 09/29/202209/2909/29/2022 10:20 AM INFORMATION TECHNOLOGY CONSULTANT documented as of this encounter Care Teams Receptionist Telephone Operator Relationship Specialty Start Date End Date Robert Meza MD [address] [place] [address] PCP - General Family Medicine 10/09/17 Christina Richmond MA [address] [place] [address] [address] [place] [id number] ACO Care Assembly Machine Offbearer 09/30/22 09/30/22 documented as of this encounter
== END 2025-06-21 13:30 | disposition home or self-care (01) ==
PROVIDERS: Emergency Provider Nurse Practitioner; PCP Family Medicine
DX: S92.355A Nondisplaced fracture of fifth metatarsal bone, left foot, initial encounter for closed fracture (principal); X50.1XXA Overexertion from prolonged static or awkward postures, initial encounter; I10 Essential (primary) hypertension; E11.9 Type 2 diabetes mellitus without complications; Z79.85 Long-term (current) use of injectable non-insulin antidiabetic drugs; E78.00 Pure hypercholesterolemia, unspecified; K21.9 Gastro-esophageal reflux disease without esophagitis
CPT/HCPCS: 73630; 99214; G0463